=== PATIENT | female | born 1935 | race Caucasian/White ===

== ENCOUNTER 2017-08-01 10:58 | Emergency (ER) | payer OTHER ==
[~2017-08-01] VITALS: Ht 162.6 cm; Wt 77.1 kg
[~2017-08-01 10:58] MED LIST: ACID CONTROL20 MG PO; ACTONEL 35 MG35 M1 PO; AMLODIPINE BESY10 MG PO; ANALGESIC325 MG PO; BACTRIM DS TAB1 EACH PO; CALCITRIOL0.5 MCG PO; CIPROFLOXACIN500 M1 PO; DILANTIN 100 M100 MG PO; EFFEXOR XR37.5 MG PO; EFFEXOR37.5 MG PO; IMDUR 30 MG TAB30 M1 PO; LISINOPRIL10 MG PO; LISINOPRIL40 MG PO; NORCO 5-325 TA1 EACH PO; PHENYTEK200 MG PO; SIMVASTATIN10 MG PO; TOPROL XL50 MG PO; VICODIN 5-5001 EACH PO; VITAMIN D1000 UNI1 PO
[2017-08-01 12:20] LABS: ABSOLUTE NEUTROPHILS 9.9 thou/uL (1.4-8.2); BASOPHILS 0.5 % (0.0-2.0); EOSINOPHILS 0.4 % (0.0-3.0); HEMATOCRIT 43.2 % (37.0-47.0); HEMOGLOBIN 14.6 gm/dL (12.0-15.0); LYMPHOCYTES 2.8 % (24.0-44.0); MCHC 33.7 g/dL (28.0-37.0); MCV 94.9 fL (80.0-100.0); MONOCYTES 5.7 % (1.0-8.0); PLATELET COUNT 340 thou/uL (150-400); POLYS 90.6 % (36.0-66.0); RBC 4.55 mil/uL (4.20-5.00); RDW 13.3 % (10.5-14.5)
[2017-08-01 12:27] LABS: CALCIUM 9.9 mg/dL (8.5-10.1); CREATININE 0.9 mg/dL (0.6-1.0); POTASSIUM 4.2 mmol/L (3.5-5.1)
[2017-08-01 12:34] LABS: TOTAL BILIRUBIN 0.5 mg/dL (<0.1-1.0); TOTAL PROTEIN 7.8 g/dL (6.4-8.2)
[2017-08-01 13:31] LABS: URINE BILIRUBIN NEGATIVE (Negative); URINE BLOOD TRACE (Negative); URINE CLARITY CLEAR; URINE COLOR YELLOW; URINE GLUCOSE-RANDOM* NEGATIVE (Negative); URINE KETONES NEGATIVE (Negative); URINE LEUKOCYTES TRACE (Negative); URINE NITRITE NEGATIVE (Negative); URINE PROTEIN (DIPSTICK) NEGATIVE (Negative); URINE UROBILINOGEN 0.2 E.U./dl (0.2-1.0)
[2017-08-01] MEDS ORDERED: PHENERGAN 25 MG25 M1 PO (13:44)
== END 2017-08-01 14:19 | disposition home or self-care (01) ==
LOC: ER 10:58
PROVIDERS: Physician Assistant
DX: R11.2 Nausea with vomiting, unspecified (principal); I10 Essential (primary) hypertension; F41.9 Anxiety disorder, unspecified; F32.9 Major depressive disorder, single episode, unspecified; Z87.891 Personal history of nicotine dependence; Z90.49 Acquired absence of other specified parts of digestive tract

== ENCOUNTER 2018-07-06 09:35 | Inpatient (IN) | payer OTHER ==
[~2018-07-06] VITALS: Ht 162.6 cm; Wt 64.5 kg
--- NOTE | ~2018-07-06 | EKG ---
[place] [address] [address] [facility] 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 : 1935 Requested By: Laney Antonio Order Number: [id number] MD: Estuardo Vance Measurements Intervals [place] Rate: 89 P: 39 OK: 171 QRS: -20 QRSD: 90 T: 39 QT: 384 QTc: 468 Interpretive Statements Sinus rhythm left atrial enlargement Leftward axis Nonspecific ST-T wave changes Baseline wander in lead(s) V1 Compared to ECG 04/21/2011 11:49:00 Electronically Signed On 07-06-2018 12:12:22 RETAIL SERVICE TECHNICIAN by Estuardo Vance [email or web address] <ELECTRONICALLY SIGNED> By: Estuardo Vance MD 07/06/18 1212 1025 24 Estuardo Vance MD /EPI
[~2018-07-06 09:35] MED LIST changes: +PHENERGAN 25 MG25 M1 PO
[2018-07-06 09:37] VITALS: BP 138/73
[2018-07-06 09:57] LABS: ABSOLUTE NEUTROPHILS 6.8 thou/uL (1.4-8.2); BASOPHILS 1.3 % (0.0-2.0); EOSINOPHILS 0.5 % (0.0-3.0); HEMOGLOBIN 14.7 gm/dL (12.0-15.0); LYMPHOCYTES 10.5 % (24.0-44.0); MCH 32.4 pg (26.0-34.0); MCHC 34.3 g/dL (28.0-37.0); MCV 94.7 fL (80.0-100.0); PLATELET COUNT 347 thou/uL (150-400); POLYS 78.7 % (36.0-66.0); RBC 4.54 mil/uL (4.20-5.00); RDW 13.6 % (10.5-14.5); WBC 8.6 thou/uL (4.0-11.0)
[2018-07-06 09:58] LABS: URINE BLOOD TRACE (Negative); URINE CLARITY CLEAR; URINE COLOR YELLOW; URINE GLUCOSE-RANDOM* NEGATIVE (Negative); URINE KETONES TRACE (Negative); URINE LEUKOCYTES 1+ (Negative); URINE NITRITE NEGATIVE (Negative); URINE PROTEIN (DIPSTICK) 1+ (Negative); URINE SPECIFIC GRAVITY >= 1.030 (1.005-1.035); URINE UROBILINOGEN 0.2 E.U./dl (0.2-1.0)
[2018-07-06 10:02] LABS: ICTOTEST (BILI CONFIRMATORY) Negative (Negative); URINE BILIRUBIN NEGATIVE (Negative)
[2018-07-06 10:04] LABS: CALCIUM 9.7 mg/dL (8.5-10.1); POTASSIUM 3.9 mmol/L (3.5-5.1)
[2018-07-06 10:12] LABS: ALBUMIN 3.6 g/dL (3.4-5.0); TOTAL BILIRUBIN 0.4 mg/dL (<0.1-1.0); TOTAL PROTEIN 7.4 g/dL (6.4-8.2)
[2018-07-06 10:15] LABS: CASTS None Seen /LPF (None Seen); CRYSTALS None Seen /LPF (None Seen); SQUAMOUS 0-3 Few /LPF (0-3); URINE WBC 6-15 Few /HPF (0-5)
[2018-07-06 10:16] LABS: BACTERIA 1-9 Few /HPF (None Seen); MUCUS 0-3 Light strn/LPF (None Seen); URINE RBC 0-2 Rare /HPF (0-2)
[2018-07-06] MEDS ORDERED: ONDANSETRON HCL4 M2 PO (11:40)
[2018-07-06 12:21] LABS: BE(vivo) -4.9 mmol/L (-2 to +3); HCO3 19.7 mmol/L (22.0-26.0); PCO2 35.3 mmHg (35.0-45.0); PO2 72.5 mmHg (80.0-100.0); pH 7.365 (7.360-7.450); sO2 94.3 % (92.0-98.0)
[2018-07-06 12:49] VITALS: BP 138/65
[2018-07-06 13:01] VITALS: BP 133/78
[2018-07-06] MEDS ORDERED: DILANTIN100 MG PO (13:29)
[2018-07-06 14:00] VITALS: BP 133/69
[2018-07-06 16:48] VITALS: BP 129/60
[2018-07-06 19:02] VITALS: BP 135/69
[2018-07-07 06:27] LABS: HEMATOCRIT 38.4 % (37.0-47.0); MCH 32.9 pg (26.0-34.0); MCHC 33.8 g/dL (28.0-37.0); MCV 97.3 fL (80.0-100.0); PLATELET COUNT 282 thou/uL (150-400); RBC 3.95 mil/uL (4.20-5.00); RDW 13.8 % (10.5-14.5); WBC 5.7 thou/uL (4.0-11.0)
[2018-07-07 06:42] LABS: ALBUMIN 2.8 g/dL (3.4-5.0); CALCIUM 8.5 mg/dL (8.5-10.1); CREATININE 0.8 mg/dL (0.6-1.0); POTASSIUM 4.1 mmol/L (3.5-5.1); TOTAL BILIRUBIN 0.3 mg/dL (<0.1-1.0); TOTAL PROTEIN 5.8 g/dL (6.4-8.2)
[2018-07-07 07:05] LABS: ABSOLUTE NEUTROPHILS 3.2 thou/uL (1.4-8.2); ANISOCYTOSIS 1+
[2018-07-07 08:01] VITALS: BP 164/74
[2018-07-07 10:20] VITALS: BP 164/74
[2018-07-07 15:00] VITALS: BP 149/73
[2018-07-07 19:28] VITALS: BP 146/69
[2018-07-08 04:28] VITALS: BP 113/53
[2018-07-08 05:16] LABS: BE(vivo) 0.2 mmol/L (-2 to +3); HCO3 25.3 mmol/L (22.0-26.0); PCO2 42.7 mmHg (35.0-45.0); PO2 57.8 mmHg (80.0-100.0); pH 7.391 (7.360-7.450); sO2 89.8 % (92.0-98.0)
[2018-07-08 05:24] LABS: HEMATOCRIT 40.7 % (37.0-47.0); HEMOGLOBIN 13.8 gm/dL (12.0-15.0); MCH 32.8 pg (26.0-34.0); MCV 96.5 fL (80.0-100.0); RBC 4.22 mil/uL (4.20-5.00); RDW 13.6 % (10.5-14.5); WBC 6.7 thou/uL (4.0-11.0)
[2018-07-08 05:42] LABS: CALCIUM 8.7 mg/dL (8.5-10.1); CREATININE 0.8 mg/dL (0.6-1.0); MAGNESIUM 1.9 mg/dL (1.8-2.4); POTASSIUM 4.4 mmol/L (3.5-5.1); TOTAL BILIRUBIN 0.4 mg/dL (<0.1-1.0); TOTAL PROTEIN 6.1 g/dL (6.4-8.2)
[2018-07-08 07:23] VITALS: BP 159/68
[2018-07-08 13:42] VITALS: BP 137/70
[2018-07-08 19:05] VITALS: BP 157/69
[2018-07-09 03:25] VITALS: BP 82/64
[2018-07-09 12:39] VITALS: BP 149/96
== END 2018-07-09 13:15 | disposition home or self-care (01) | DRG 682 ==
LOC: ER 09:35 → EROBS 12:38 → 4W 12:38 → ENTRNSPT 07-09 12:54 → EDTRNSPTSTS 07-09 12:57 → 4W 07-09 13:15
PROVIDERS: Emergency Medicine; Internal Medicine; Nurse Practitioner Family
DX: N17.9 Acute kidney failure, unspecified (principal); J96.01 Acute respiratory failure with hypoxia; R18.8 Other ascites; I69.351 Hemiplegia and hemiparesis following cerebral infarction affecting right dominant side; J98.11 Atelectasis; K52.9 Noninfective gastroenteritis and colitis, unspecified; I10 Essential (primary) hypertension; E86.0 Dehydration; E78.5 Hyperlipidemia, unspecified; H91.90 Unspecified hearing loss, unspecified ear; K37 Unspecified appendicitis; H54.40 Blindness, one eye, unspecified eye; K21.9 Gastro-esophageal reflux disease without esophagitis; G40.409 Other generalized epilepsy and epileptic syndromes, not intractable, without status epilepticus; F32.9 Major depressive disorder, single episode, unspecified; F41.9 Anxiety disorder, unspecified; Z87.891 Personal history of nicotine dependence; I69.320 Aphasia following cerebral infarction; Z90.49 Acquired absence of other specified parts of digestive tract; Z79.82 Long term (current) use of aspirin; Z79.899 Other long term (current) drug therapy
CPT/HCPCS: 10045

== ENCOUNTER 2018-09-14 13:49 | Inpatient (IN) | payer OTHER ==
[~2018-09-14] VITALS: Ht 162.6 cm; Wt 63.3 kg
--- NOTE | ~2018-09-14 | P ---
[facility] [place] [address] PROCEDURE REPORT Name: EARNESTLETI Be Room #: 220-P [facility] IN M.R.#: [id number] Admission: 09/14/18 ������������������ Attend Phys: Feliz Benitez Discharge: ������������������ Date of : 34 Report #: [id number] THIS REPORT FOR: //name// CC: Eder Benitez DATE OF SERVICE: 09/18/2018 INPATIENT COLONOSCOPY: BRIEF HISTORY: The patient is an 82-year-old woman who presented with complaints of abdominal pain, low-grade fever and diarrhea as well as emesis. It is noted that she had similar problems in June of this past year and she was found to have fluid in the right colon and ileum suggestive of enteritis. There is also thickening of the distal limb and terminal ileum. She was treated conservatively, returned on this occasion with similar symptoms and unchanged appearance on CT. POSTOPERATIVE DIAGNOSES: Abnormal ileocecal valve and terminal ileum on CT with signs of obstruction. POSTOPERATIVE DIAGNOSES: 1. High-grade obstructing mass lesion proximal colon consistent with a malignant process. 2. Colon polyp. 3. Pandiverticulosis coli, moderate. 4. Internal hemorrhoids with a smaller mucosal prolapse. MEDICATIONS: Deep sedation with propofol for anesthesia. SPECIMEN: Biopsies of proximal colon. Obstructing mass lesion. PROCEDURE: Colonoscopy to cecum and terminal ileum with biopsy and Minal ink injection. FINDINGS: Prior to propofol sedation, procedure of colonoscopy was discussed with the patient as well as family members. She indicates she understands and desires to proceed. DESCRIPTION OF PROCEDURE: With the patient in left lateral decubitus position, digital examination was completed, which revealed no abnormalities. Subsequently, the Olympus video colonoscope was introduced into the rectum and advanced under direct vision to the proximal colon. This was done with minimal difficulty. We advanced the scope into what I believe was the proximal colon. [facility] [address] [place] [address] PROCEDURE REPORT Name: TINOCOLETI Be Room #: 220-P [facility] IN [facility].#: [id number] Admission: 09/14/18 ������������������ Attend Phys: Feliz Benitez Discharge: ������������������ Date of : 34 Report #: [id number] We encountered obstructing mass lesion. It had typical apple core appearance. The central lumen was patent, but was no more than 7-8 mm. It was much too small to allow forward advancement of the scope through the lesion. There appeared to be fully circumferential mass lesion. Multiple biopsies were obtained. Just distal to this area was a small 5 or 6 mm polyp. It was close to the mass lesion and was not removed. We also placed 2 Minal ink injections just distal to the colonic mass. At that point, scope was slowly withdrawn and careful circumferential views obtained. Overall, the prep was good. The mucosa was within normal limits, normal vascular pattern, normal light reflex except for the above-mentioned lesion. There were scattered diverticula throughout the colon. There was no endoscopic evidence of diverticulitis. No additional neoplastic or obstructing lesions were seen. The scope was withdrawn in the rectum and no abnormalities were seen. However, upon retroflexion, there was an area of thickened mucosa, most consistent with a small area of mucosal prolapse. It was not bleeding. The scope was withdrawn. The patient tolerated the procedure well. DISPOSITION: The patient with abnormal CT of the region of the ileocecal valve and terminal ileum. She was found to have obstructing colon mass. This is likely malignant. Exact location is not clear, but I do believe it is in the proximal colon. We will follow up on biopsies. The patient was previously seen by Dr. Elliott and we will ask him to follow up with this patient who will require surgical management of her obstructing colon mass. ��������������������������������������������� ���������������������������������������� By: ��������������������������������������������� 1340 0152 Dash Desai MD /nt
[~2018-09-14 13:49] MED LIST changes: -ANALGESIC325 MG PO; +DILANTIN100 MG PO; +ECPIRIN325 MG PO; +ONDANSETRON HCL4 M2 PO
[2018-09-14 13:50] VITALS: BP 118/54
[2018-09-14 14:38] LABS: URINE BLOOD NEGATIVE (Negative); URINE CLARITY SL CLOUDY; URINE COLOR YELLOW; URINE GLUCOSE-RANDOM* NEGATIVE (Negative); URINE KETONES TRACE (Negative); URINE PROTEIN (DIPSTICK) TRACE (Negative); URINE SPECIFIC GRAVITY >= 1.030 (1.005-1.035); URINE UROBILINOGEN 0.2 E.U./dl (0.2-1.0)
[2018-09-14 14:39] LABS: ICTOTEST (BILI CONFIRMATORY) Negative (Negative); URINE BILIRUBIN NEGATIVE (Negative); URINE LEUKOCYTES-REFLEX 1+ (Negative); URINE NITRITE-REFLEX POSITIVE (Negative)
[2018-09-14 14:39] LABS: ABSOLUTE NEUTROPHILS 7.9 thou/uL (1.4-8.2); BASOPHILS 1.1 % (0.0-2.0); EOSINOPHILS 0.5 % (0.0-3.0); HEMATOCRIT 39.7 % (37.0-47.0); HEMOGLOBIN 13.4 gm/dL (12.0-15.0); LYMPHOCYTES 10.8 % (24.0-44.0); MCH 32.1 pg (26.0-34.0); MCHC 33.9 g/dL (28.0-37.0); MCV 94.8 fL (80.0-100.0); PLATELET COUNT 365 thou/uL (150-400); POLYS 75.6 % (36.0-66.0); RBC 4.19 mil/uL (4.20-5.00); RDW 13.6 % (10.5-14.5); WBC 10.5 thou/uL (4.0-11.0)
[2018-09-14 14:45] LABS: ANION GAP 8 mmol/L (7-16); BUN 22 mg/dL (7-18); CALCIUM 9.3 mg/dL (8.5-10.1); CHLORIDE 103 mmol/L (98-107); CO2 27 mmol/L (21-32); GLUCOSE 133 mg/dL (74-106); POTASSIUM 4.1 mmol/L (3.5-5.1); SODIUM 138 mmol/L (136-145)
[2018-09-14 14:47] LABS: BACTERIA-REFLEX >30 Many /HPF (None Seen); CASTS None Seen /LPF (None Seen); CRYSTALS None Seen /LPF (None Seen); SQUAMOUS None Seen /LPF (0-3); URINE RBC None Seen /HPF (0-2)
[2018-09-14 15:04] LABS: ALBUMIN 3.4 g/dL (3.4-5.0); LIPASE 59 U/L (73-393); SGOT 16 U/L (15-37); SGPT 17 U/L (30-65); TOTAL BILIRUBIN 0.3 mg/dL (<0.1-1.0); TOTAL PROTEIN 6.9 g/dL (6.4-8.2); TROPONIN-I <0.06 ng/mL (<0.06)
[2018-09-14 18:15] LABS: TSH 2.08 uIU/mL (0.358-3.740)
[2018-09-14 19:52] VITALS: BP 118/74
[2018-09-14 20:18] VITALS: BP 127/63
--- NOTE | 2018-09-15 02:36 | EKG ---
[address] [place] [address] ELECTROCARDIOGRAM REPORT Name: LETI TINOCO Room #: 455-P ADM IN M.R.#: [id number] ������������������ Admission: 09/14/18 ������������������ Attend Phys: Feliz Benitez Discharge: ������������������ Date of : 34 Report #: [id number] ����������������������������������������������������������������� [id number] THIS REPORT FOR: //name// [facility] ED Test Date: 2018-09-14 Test Time: 13:59:43 Pat Name: LETI TINOCO Department: Room: [facility] Gender: F Procedure Manager: CHRISTIANO : 1935 Requested By: Shital Burrell Order Number: [id number] MD: Estuardo Vance Measurements Intervals [place] Rate: 79 P: 47 SC: 170 QRS: -21 QRSD: 89 T: 83 QT: 393 QTc: 451 Interpretive Statements Sinus rhythm Borderline left axis deviation Nonspecific ST-T wave changes Compared to ECG 07/06/2018 10:25:41 No significant changes Electronically Signed On 09-15-2018 2:36:34 COMMUNITY SPORTS COORDINATOR by Estuardo Vance [email or web address] ��������������������������������������������� <ELECTRONICALLY SIGNED> ���������������������������������������� By: Estuardo Vance MD ��������������������������������������������� 09/15/18 0236 1359 1359 Estuardo Vance MD /EPI
[2018-09-15 04:43] VITALS: BP 114/56
[2018-09-15 08:41] VITALS: BP 123/56
[2018-09-15 16:30] VITALS: BP 142/59
[2018-09-15 19:15] VITALS: BP 152/60
[2018-09-16 04:13] VITALS: BP 143/62
--- NOTE | 2018-09-16 06:18 | NUR ---
A/O, calm and pleasant; vss, afebrile; patient is not able to express needs clearly, was thirsty and hungry, the staff fed her ice cream, jello and ice water, tolerated very well; there is rash all over the back, will pass this on to the day nurse; patient voiced that she did not get sleep during the night, patient was in bed with eyes closed in bed this morning, will pass this on to the day nurse to see if the doctor will give some sleeping pill for the patient. no c/o nausea or vommitting, no diarrhea.
[2018-09-16 08:25] VITALS: BP 142/52
[2018-09-16 15:17] VITALS: BP 172/72
[2018-09-16 20:04] VITALS: BP 165/73
[2018-09-17 03:26] LABS: CALCIUM 8.6 mg/dL (8.5-10.1); CREATININE 0.6 mg/dL (0.6-1.0)
[2018-09-17 03:27] LABS: POTASSIUM 2.9 mmol/L (3.5-5.1)
[2018-09-17 03:56] LABS: HEMATOCRIT 36.8 % (37.0-47.0); HEMOGLOBIN 12.4 gm/dL (12.0-15.0); MCHC 33.7 g/dL (28.0-37.0); MCV 95.1 fL (80.0-100.0); RBC 3.87 mil/uL (4.20-5.00); RDW 13.3 % (10.5-14.5); WBC 6.2 thou/uL (4.0-11.0)
[2018-09-17 04:18] VITALS: BP 154/74
--- NOTE | 2018-09-17 06:41 | NUR ---
PATIENTS CARES WERE ASSUMED AT SHIFT CHANGE. PATIENT WAS ASSESSED AND MEDS WERE PASSED. PATIENT DID HAVE APPROX 400CC ZINA GREEN EMESIS. CALLED FOR IVP PEPCID AND ZOOFRAN. ZOFRAN WAS GIVEN AND NOT ANOTHER EPISODE. PATIENT WAS ABLE TO SLEEP AFTER SHE WAS CLEANED. PATIENT HAD TWO BATHS AND LINEN CHANGE HOURLY ROUNDS WERE DONE . PATIENT DID APPER TO BE SLEEPING WELL. THE BED IS IN A LOW AND LOCKED POSITION AND THE BED AALARM IS ON.
[2018-09-17 07:37] VITALS: BP 156/77
--- NOTE | 2018-09-17 14:16 | NUR ---
chart review, fani visited with pt at bedside, pt a & o self and family, difficulty with verbal communication 2nd to past h/o stroke. noted pt would say " yeah i do, or oh yes"/saira. fani visited with daughter sharda via phone call, intro to dcp, transition of care, hh and post acute " oh mom rehab from september 2007 and did not return home till december or january 2008, she was at [facility], then [facility], then [facility], and been to [facility]. my sister jong spends day with mom and friend zak who has mr and live in some home. mom uses walker and then when we go out she uses wheel chair. has scooter but she doesnt want to use it. has shower chair, to small space, so mom preferrs taking sponge wash and she stands holds on to sink and wash her hair. i stay night after work with mom and zak, then jong who is retired spends day time hours. we manage the medication. mom is able to feed her self. i think last time she was in there dec needed oxygen, but she does not have any home oxygen."/sharda. education on qualifications for home o2. will cont following as needed for dc needs.
--- NOTE | 2018-09-17 15:11 | NUR ---
Assumed care of patient at 0700. Patient resting in bed, had been incontinent of urine, placed female external catheter; worked well through the day. Patient able to tolerate liquids without difficulty, no vomitting noted. No stools for this shift. Seen by GI, plans for c-scope tomorrow, will undergo bowel prep tonight. Ok'd to transfer to senior suites, will go to room 220. Report called to SUHAS Esparza.
[2018-09-17 19:01] VITALS: BP 175/88
--- NOTE | 2018-09-18 04:13 | NUR ---
Pt alert and able to make needs with gestures,unable to talk d/t expressive aphasia from a previous stroke. Pt denies pain on assessment,VSS. Pt has been NPO since midnight for a colonoscopy today,able to tolerate bowel prep with no nausea or emesis reported. Pt having loose dark brown BMs at this time,does have some episodes of incontinence of B&B but otherwise using call light to call for help to get up and use BSC. Pt has right side hemiparesis with contracture noted on RUE,passive ROM done and pt tolerated well.Up with AX1, GB/RW. Pt is resting quietly at this time,eyes closed with no distress noted. Will continue to monitor pt.
[2018-09-18 07:30] VITALS: BP 165/77
--- NOTE | 2018-09-18 08:48 | NUR ---
PATIENT CARE WAS ASSUMED AT 0715.PATIENT IS ALERT AND ORIENTED X4.PATIENT HAS A HARD TIME EXPRESSING WHAT SHE WANTS TO SAY DUE TO AN OLD CVA.PT WAS PREP FOR COLONSCOPY,BOWEL MOVEMENTS ARE LIQUID BUT NOT CLEAR, AT THIS TIME.NO COMPLAINS OF PAIN AT THIS TIME.IV IS INTACT, AND HAS FLUIDS INFUSING.CALL LIGHT, PHONE, AND PERSONAL BELONGINGS ARE WITHIN REACH.BED ALARM AND CHAIR ALARM ARE IN PLACE,WITH OTHER FALL PRECAUTION.
--- NOTE | 2018-09-18 11:54 | NUR ---
PATIENT WAS TAKEN TO GI FOR PROCEDURE.FAMILY WAS CALLED AND WAS TOLD TO COME TO 2ND FLOOR TO SURGERY WAITING ROOM OR SENIOR SUITES.ENEMA WAS GIVEN BOWEL MOVEMENT IS STARTING TO CLEAR UP.COLOR IS CAPITAN GRANDE BAND GREEN, AND LIQUID.
[2018-09-18 18:55] VITALS: BP 161/100
[2018-09-18 21:12] VITALS: BP 160/85
[2018-09-19 05:56] LABS: CREATININE 0.8 mg/dL (0.6-1.0)
[2018-09-19 06:16] LABS: POTASSIUM 2.8 mmol/L (3.5-5.1)
--- NOTE | 2018-09-19 07:30 | NUR ---
Assumed pt care at 1900,pt alert,with expressive aphasia but able to make needs known with gestures. Denies pain on assessment. Had a colonoscopy yesterday,has had no complaints of N/V. Up with AX1,RW/GB to [facility].IVF infusing via left FA without any problems voiced.Resting quietly with eyes closed at this time with no distress noted.
--- NOTE | 2018-09-19 09:54 | NUR ---
SW reviewed chart and spoke with nursing. Pt was transferred to Senior Suites from . Pt had colonoscopy yesterday and on onstructing colon mass was found. Surgery consulted. Pt to be NPO for surgical intervention later today or tomorrow. SRIDHAR is following to assist as needed with discharge planning.
[2018-09-19 10:19] LABS: MAGNESIUM 1.4 mg/dL (1.8-2.4)
--- NOTE | 2018-09-19 13:06 | EKG ---
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 ODOM : 1935 Requested By: Ritesh Rivers Order Number: [id number] MD: Estuardo Vance Measurements Intervals [place] Rate: 73 P: 48 VT: 160 QRS: -2 QRSD: 102 T: 43 QT: 406 QTc: 448 Interpretive Statements Sinus rhythm Early transition Nonspecific ST-T wave changes Compared to ECG 09/14/2018 13:59:43 No significant changes Electronically Signed On 09-19-2018 13:06:29 WEB CONTENT SPECIALIST by Estuardo Vance [email or web address] ��������������������������������������������� <ELECTRONICALLY SIGNED> ���������������������������������������� By: Estuardo Vance MD ��������������������������������������������� 09/19/18 1306 1009 1009 Estuardo Vance MD /EPI
--- NOTE | 2018-09-19 18:03 | NUR ---
ASSUMED CARE OF PATIENT AT 0715, PATIENT ALERT AND ORIENTED X 4. PATIENT UP WITH ASSIST X [address]-WALKER [address] [facility] PATIENT DENIES PAIN THIS SHIFT. PATIENT HAD IV LEFT WRIST, PATIENT WENT TO HAVE CT SCAN OF CHEST DONE, PATIENT CAME BACK WITH SWOLLEN ARM, BRUISED REAALY BAD AFTER THEY PUT CONTRAST IN HER ARM, ICE APPLIED TO SITE AFTER RETURNING TO THE UNIT. NEW IV JUST STARTED IN LEFT UPPER ARM. PATIENT WILL BE NPO AFTER MIDNIGHT FOR SURGERY/DR COWART. EKG DONE THIS AM/NSR. PATIENT HAS EXPRESSIVE APHASIA, BUT CAN MAKE NEEDS KNOWN. POTASSIUM LEVEL THIS AM 2.8, STAT LAB DONE, NOW 4.1 AFTER POTASSIUM PROTOCOL DONE. PATIENT ALSO HAS D5 NS AT 125CC/HR. CHRONIC EDEMA TO RIGHT LEG. WILL CONTINUE TO MONITOR.
[2018-09-19 21:01] VITALS: BP 161/96
--- NOTE | 2018-09-20 05:38 | NUR ---
Pt alert with expressive aphisia but able to make needs known. Denies pain on assessment.Up with assist of 1,quad cane/GB.VSS.Pt has had two episodes of bladder incontinence otherwise calls approp to use BSC.Denies any nausea or vomiting.Pt has been NPO since midnight for a possible hemicolectomy.Dtr would like to be notified of the surgery time this am so they can come over to be with pt,will pass on to day shift RN.Pt chose to get OOB and sleep on the chair at 0245,resting at this time with no distress noted. Swelling persists on LFA r/t infiltration,ice pack applied on and off and elevated on a pillow,denies pain to the area. Will continue to monitor pt.
[2018-09-20 07:42] LABS: CALCIUM 9.2 mg/dL (8.5-10.1); CREATININE 0.6 mg/dL (0.6-1.0); POTASSIUM 3.3 mmol/L (3.5-5.1)
[2018-09-20 07:50] VITALS: BP 160/71
--- NOTE | 2018-09-20 10:11 | NUR ---
SRIDHAR reviewed chart and spoke with nursing. Pt scheduled to have surgery today due to right colon mass. Pt will have right hemicolectomy. Will have therapy evaluate pt for recommendation for discharge needs. SRIDHAR is following to assist as needed with discharge planning.
--- NOTE | 2018-09-20 13:02 | NUR ---
Pt SCHEDULED TO HAVE R HEMICOLECTOMY PER CHART. WILL NEED NEW PT ORDERS S/P SURGICAL INTERVENTION TO RESUME PT SERVICES.
--- NOTE | 2018-09-20 17:50 | NUR ---
ASSUMED CARE OF PATIENT AT 0715, PATIENT ALERT AND ORIENTED X 4. UP WITH ASSIST X 1 WITH QUAD CANE. PATIENT WAS NPO THIS AM FOR SURGERY, CALLED DR COWART, NO SURGERY TODAY, SURGERY IN AM O730, PATIENT WILL BE NPO AFTER MIDNIGHT. PATIENT STARTED CLEAR LIQUID DIET FOR LUNCH. PATIENT HAS BEEN UP MULTIPLE TIMES FOR BSC. PATIENT HAS LEFT UPPER ARM IV IN PLACE WITH D51/2NS AT 100CC/HR. PATIENT C/O PAIN WITH RIGHT LEG AND ABDOMEN AREA, PATIENT HAS MASS IN COLON AREA WILL HAVE SURGERY FOR REMOVAL OF MASS. PATIENT HAS HAD MORPHINE IV FOR PAIN, CALLED DR AMATO FOR PO PAIN MED, SHE STATED TO JUST USE A HEATING PAD TO ABDOMEN AREA NO ORDER RECEIVED FOR PO PAIN MEDS. SPOKE WITH JORGE/DAUGHTER TODAY FOR UPDATE SHE IS THE DPOA. PATIENT CONTINUES TO HAVE LARGE AREAS OF BRUISING TO LEFT ARM, SWELLING IMPROVED, CONTRACTURE TO RIGHT ARM. WILL CONTINUE TO MONITOR.
[2018-09-20 18:50] VITALS: BP 176/92
[2018-09-21 06:35] VITALS: BP 154/84
[2018-09-21 07:07] LABS: HEMATOCRIT 41.4 % (37.0-47.0); HEMOGLOBIN 13.9 gm/dL (12.0-15.0); MCH 31.9 pg (26.0-34.0); MCHC 33.5 g/dL (28.0-37.0); RBC 4.36 mil/uL (4.20-5.00); RDW 13.6 % (10.5-14.5)
[2018-09-21 07:18] LABS: CALCIUM 9.2 mg/dL (8.5-10.1); CREATININE 0.7 mg/dL (0.6-1.0); POTASSIUM 3.8 mmol/L (3.5-5.1)
--- NOTE | 2018-09-21 07:20 | NUR ---
PATIENT ALERT AND ORIENTED X4. DOES HAVE EXPRESSIVE APHAGIA BUT ABLE TO MAKE WANTS AND NEEDS KNOWN. UP TO BSC WITH ASSISTANCE OF 1. IV PATENT. BATH GIVEN FOR SURGERY. REMAINS NPO SINCE MN. SLEPT OFF AND ON DURING THIS SHIFT.
--- NOTE | 2018-09-21 10:43 | NUR ---
SW reviewed chart and spoke with nursing and attending physician. Pt is scheduled to have surgery (right hemicolectomy) today. Will have therapy eval pt after surgery to assist with recommendation for discharge disposition. SW is following to assist as needed with discharge planning.
[2018-09-21 11:42] VITALS: BP 169/92
--- NOTE | 2018-09-21 11:51 | NUR ---
PATIENT ARRIVED TO SENIOR SUITES FROM SURGERY.PATIENT IS ALERT, AND HAS SOME PAIN.FAMILY IS AT BEDSIDE.PATIENT WAS NOT GIVEN B/P MEDS ARE MEDICATION FOR SEIZURES BEFORE GOING TO OR.WILL GIVEN MEDICATIONS LATER TODAY.VITALS WERE TAKEN.
--- NOTE | 2018-09-21 12:03 | NUR ---
PT UNDERWENT SURGERY: HEMICOLECTOMY. DUE TO CHANGE IN STATUS, NEW ORDERS FOR O.T. ARE NEEDED WHEN/IF APPROPRIATE.
--- NOTE | 2018-09-21 16:07 | PATH ---
[facility] [address] [place] [address] PATHOLOGY RPT PROCEDURE Name: TINOCOLETI A Room #: 220-P ADM IN M.R.#: [id number] ������������������ Admission: 09/14/18 ������������������ Date of : 34 Discharge: Report #: [id number] Path Case #: [id number] [facility] Accession Number: [id number] . 01 Material submitted: . PROXIMAL COLON OBSTRUCTING MASS BIOPSY . 01 Clinical history: . Pre-OP DX: Abnormal CT Post-OP DX: Colon mass . 02 Diagnosis: Large intestine, proximal colon obstructing mass, endoscopic biopsy: - INVASIVE MODERATELY DIFFERENTIATED COLONIC ADENOCARCINOMA. (IUV:pit 09/19/2018) QTP/09/19/2018 . 02 Comment: Co-review: Dr. Jyoti Boykin. . Findings are relayed to Ms. Lani Torres, Nurse Practitioner for Dr. Dash Desai at 2:25 pm on 09/19/2018. (IUV:pit 09/19/2018) . 02 Electronically signed: . Sharlene Lee MD, Pathologist NPI- [id number] . 01 Gross description: . Received in formalin labeled "Leti Tinoco, proximal colon obstructing mass biopsy," are multiple segments of rosales soft tissue measuring 1.5 x 0.6 x 0.1 cm in aggregate dimensions. The specimen is filtered and entirely submitted in cassette A1. (TSD; 09/18/2018) TOB/TOB . 02 Pathologist provided ICD-10: C18.9 . 02 CPT . 242951 Specimen Comment: A courtesy copy of this report has been sent to Specimen Comment: [phone], , . Specimen Comment: Report sent to ,DR DUKES / DR GÓMEZ Specimen Comment: A duplicate report has been generated due to demographic updates. Performed at: [address] [place] [address] PATHOLOGY RPT PROCEDURE Name: LETI TINOCO Room #: 220-P [facility] IN M.R.#: [id number] ������������������ Admission: 09/14/18 ������������������ Date of : 33 Discharge: Report #: [id number] Path Case #: [id number] [address], [place], [place] [id number] MD Deo Mcfadden MD Phone: [phone] Performed at: [address], [place], [place] [id number] MD Sharlene Lee MD Phone: [phone]
--- NOTE | 2018-09-21 16:56 | NUR ---
PATIENT SEEN BY KHADAR ARAUZ, AND DETERMINED TO BE A CANDIDATE FOR ACUTE REHAB. IF PATIENT IS READY FOR DISCHARGE OVER THE WEEKEND (09/22 TO 09/23/18), PLEASE CONTACT JUSTEN HVAC DESIGNER TO INITIATE THE REHAB ADMISSION PROCESS - PHONE # [phone].
[2018-09-21 19:14] VITALS: BP 144/78
--- NOTE | 2018-09-22 03:48 | NUR ---
PATIENT ALERT AND ORIENTED X4. O2NC 3L. FERRIS TO D/D WITH CLEAR GRAYSON URINE. DRY COUGH. DRESSING D/I TO ABDOMINAL AREA. NO N/V NOTED. IVF INFUSING W/O COMPLICATION. RIGHT SIDE WEAKNESS DUE TO STROKE. SLOW TO SPEAK AND PROCESS, HOWEVER, APPROPRIATE WITH ANSWERS. BEDREST DURING THE NIGHT. WILL MONITOR.
[2018-09-22 07:06] LABS: HEMATOCRIT 34.6 % (37.0-47.0); MCH 32.6 pg (26.0-34.0); MCHC 34.5 g/dL (28.0-37.0); MCV 94.6 fL (80.0-100.0); RBC 3.65 mil/uL (4.20-5.00); WBC 9.9 thou/uL (4.0-11.0)
[2018-09-22 07:10] LABS: HEMOGLOBIN 11.9 gm/dL (12.0-15.0)
[2018-09-22 07:19] LABS: CALCIUM 8.1 mg/dL (8.5-10.1); CREATININE 0.9 mg/dL (0.6-1.0); POTASSIUM 3.6 mmol/L (3.5-5.1)
[2018-09-22 08:55] VITALS: BP 131/72
--- NOTE | 2018-09-22 18:11 | NUR ---
ASSUMED CARE OF PATIENT AT 0715, PATIENT ALERT AND ORIENTED X 4. PATIENT REFUSED TO GET UP TO CHAIR TODAY, WILL TRY TOMORROW. C/O PAIN WITH ABDOMEN AREA, PATIENT GIVEN MORPHINE 2 MG IV THIS AM, AND HAS RECEIVED HER SCHEDULED TRAMADOL AND TYLENOL EVERY 6 HOURS. PATIENT WAS ON CLEAR LIQUIDS THIS AM AND AT LUNCH. DIET CHANGED TO FULL LIQUIDS AT DINNER. NO C/O NAUSEA THIS SHIFT. PATIENT HAS LEFT FOREARM IV WITH D51/2 NS AT 100CC/HR. PATIENT RECEIVED 2 IV ANTIBIOTICS THIS SHIFT. PATIENT HAS FERRIS CATHETER IN PLACE WITH TEA COLORED URINE. UPDATE GIVEN TO DAUGHTER/JORGE. O2 AT 3 LITERS/NC AT START OF SHIFT, DECREASED DOWN TO 1 LITER/NC, NO S/S OF RESP DISTRESS, SATS ABOVE 90% PATIENT HAS PREVENA DRESSING TO ABDOMEN AREA, C/D/I. WILL CONTINUE TO MONITOR.
[2018-09-22 19:40] VITALS: BP 143/82
--- NOTE | 2018-09-23 04:00 | NUR ---
PATIENT ALERT AND ORIENTED X4. 02NC 1L, NO SOA NOTED. IVF INFUSING W/O COMPLICATION. FERRIS TO D/D WITH LIGHT GRAYSON URINE. TOLERATING FULL LIQUID DIET. DRESSING/VAC TO ABDOMEN DRY, INTACT AND OPERATING W/O COMPLICATION. RIGHT SIDE WEAKNESS. PATIENT RESTING QUIETLY. RECEIVING SCHEDULED PAIN MEDICATION. WILL MONITOR.
[2018-09-23 07:02] LABS: HEMATOCRIT 35.3 % (37.0-47.0); HEMOGLOBIN 11.9 gm/dL (12.0-15.0); MCH 31.8 pg (26.0-34.0); MCHC 33.7 g/dL (28.0-37.0); MCV 94.3 fL (80.0-100.0); RBC 3.74 mil/uL (4.20-5.00); RDW 13.9 % (10.5-14.5); WBC 9.9 thou/uL (4.0-11.0)
[2018-09-23 07:10] LABS: CALCIUM 9.3 mg/dL (8.5-10.1); CREATININE 0.8 mg/dL (0.6-1.0); POTASSIUM 4.1 mmol/L (3.5-5.1)
--- NOTE | 2018-09-23 07:40 | HC ---
[facility] [place] [address] CONSULTATION Name: LETI TINOCO Room #: 220-P ADM IN M.R.#: [id number] Admission: 09/14/18 ������������������ Attend Phys: Feliz Benitez Discharge: ������������������ Date of : 34 Report #: [id number] THIS REPORT FOR: //name// CC: Eder Desai MD REASON FOR CONSULTATION: Adenocarcinoma of the proximal colon. HISTORY OF PRESENT ILLNESS: The patient is an 82-year-old female from the [place] area who had been in the ER for abdominal discomfort and nausea and vomiting. CAT scan raised a question of colonic thickening. The patient underwent a colonoscopy with Dr. Dash Desai on I believe 09/18/2018 at which time an abnormal ileocecal valve and terminal ileum mass was seen. There is a high grade obstructive mass consistent with a malignant process. There was also colonic polyp and pandiverticulosis colitis thought to be moderate and internal hemorrhoids with a small mucosal prolapse. The biopsy came back showing invasive moderately differentiated adenocarcinoma. The patient underwent a hemicolectomy yesterday with Dr. Elliott. Per his note, there does not appear to be any gross evidence of disease. The patient has expressive aphasia and can nod her head I believe appropriately to simple questions. She is having some discomfort, but her face does not look like extreme discomfort. and talking with nurse it sound like she has been using pain medications. She is not running any fever. She does not hurt elsewhere. She feels fatigued, but I do not believe by her description feels short of breath. PAST MEDICAL HISTORY: Notable for the recent diagnosis of adenocarcinoma of the proximal colon, status post right hemicolectomy. She also has a history of a CVA with right weakness and also expressive aphasia, also has a history of a seizure disorder, also I believe she has a history of hyperlipidemia and also I believe hypertension. FAMILY HISTORY: I believe from her report, she is and has seven children. I do not see any report about whether she worked or what type of work she did. I believe she lives with family. We will have to clarify that. CURRENT MEDICATIONS: In the hospital include cyanocobalamin 500 mcg daily, ceftriaxone 1 gram daily, phenytoin 100 mg daily, metoprolol 50 mg daily, MiraLax 17 grams daily, famotidine 10 mg b.i.d. IV, metronidazole IV, tramadol p.r.n., Tylenol p.r.n., hydralazine p.r.n. DIAGNOSTIC DATA: Radiologic studies included a CT chest that did not see [address] [address] CONSULTATION Name: TINOCOLETI Be Room #: 220-P [facility] IN M.R.#: [id number] Admission: 09/14/18 ������������������ Attend Phys: Feliz Benitez Discharge: ������������������ Date of : 34 Report #: [id number] definite evidence of metastatic disease. There was some chronic stable emphysema. CT abdomen done before surgery found distal small-bowel obstruction at the ileocecal junction where there was circumferential mural thickening. There had been fluid ascites seen earlier with a decrease on this exam. LABORATORY DATA: Lab exam is notable for a preop CEA of 16, BUN and creatinine in normal range. Liver functions normal with alkaline phosphatase slightly up at 119. White blood count 9.9, hemoglobin 11.9, MCV 94.6, platelets 259. Differential nonacute. CEA as I mentioned was 16.6. TSH recently 2.08. ASSESSMENT AND PLAN: 1. Adenocarcinoma of the proximal colon, status post hemicolectomy in 09/21/2018. We will need to repeat CEA postoperatively when she is recovered. We will await final path report. Doubt that we will suggest adjuvant chemotherapy given the patient's performance status. 2. General debility. Rehab services are seeing the patient. 3. History of cerebrovascular accident and right hemiparesis and expressive aphasia. Defer to rehab services. The patient's family not available to discuss the case. 4. Seizure disorder. The patient is on phenytoin. 5. Hyperlipidemia. Had previously been on statin. 6. Possible hypertension. He is currently on metoprolol, had been on amlodipine. We will follow. ��������������������������������������������� <ELECTRONICALLY SIGNED> ���������������������������������������� By: Hakeem Appiah MD ��������������������������������������������� 09/23/18 0740 [id number] Hakeem Appiah MD /nt
[2018-09-23 08:05] VITALS: BP 167/86
--- NOTE | 2018-09-23 15:09 | NUR ---
ASSUMED CARE OF PATIENT AT 0715, PATIENT ALERT AND ORIENTED X 4, UP WITH ASSIST X 1 WITH GAIT BELT AND QUAD CANE. PATIENT VERY WEAK TODAY, NEEDING MODERATE ASSIST X 1, UP TO RECLINER THIS AM. PATIENT C/O PAIN WITH ABDOMEN AREA, PATIENT HAS SCHEDULED TYLENOL AND TRAMADOL EVERY 6 HOURS AMD STILL HAS MORPHINE 2 MG IV GIVEN X 2 THIS SHIFT. PATIENT HAS RIGHT FOREARM IV WITH D51/2 NS AT 100CC/HR. DR GEORGE HERE THIS AM TO SEE PATIENT, ANTIBIOTICS HAVE BEEN CHANGED TO PO, PATIENT ON FUL LIQUID DIET, C/O NAUSEA THIS AM, ZOFRAN 4MG IV GIVEN, AND WAS EFFECTIVE. PATIENT HAS O2 AT 2 LITERS/NC SATS 92%, PATIENT HAS NON-PRODUCTIVE COUGH. DAUGHTER/ELIE HERE THIS AFTERNOON. WILL CONTINUE TO MONITOR.
[2018-09-23 19:23] VITALS: BP 169/85
[2018-09-23 21:26] VITALS: BP 151/90
--- NOTE | 2018-09-24 05:04 | NUR ---
PATIENT ALERT AND ORIENTED X4. SLOW TO SPEAK DUE TO STROKE. 02NC 3L. NO SOA NOTED. FERRIS TO D/D WITH CLEAR YELLOW URINE. DRESSING TO ABDOMEN DRY AND INTACT. PLEASANT AND COOPERATIVE WITH CARE. IVF INFUSING W/O COMPLICATION. NO C/O N/V. WILL MONITOR.
[2018-09-24 07:53] VITALS: BP 165/78
--- NOTE | 2018-09-24 18:21 | NUR ---
ASSUMED CARE OF PATIENT AT 0715, PATIENT ALERT AND ORIENTED X 4. PATIENT UP WITH ASSIST X 1 WITH QUAD CANE. PATIENT CONTINUES TO C/O PAIN WITH ABODMEN AREA, PREVENA DRESSING C/D/I. PATIENT RECEIVED TYLENOL AND MORPHINE IV THIS SHIFT. MORPHINE HAS BEEN DISCONTINUED AND TRAMADOL DISCONTINUED. PATIENT VOMITTED X 1, THIS RN NOTIFIED DR COWART, RECEIVED ORDER TO MAKE PATIENT NPO UNTIL DINNER AND IF SHE VOMITS AGAIN MAY HAVE TO PUT NG TUBE IN PLACE. PATIENT RESTED THE AFTERNOON, HAD SMALL AMT OF DINNER, NO C/O NAUSEA THIS THIS TIME. IV FLUIDS DISCONTINUED. PATIENT STLL HAS RIGHT FOREARM IV IN PLACE, PATIENT RECEIVE ZOFRAN 4 MG X 1 THIS SHIFT. WILL CONTINUE TO MONITOR. PT/OT WORKED WITH PATIENT TODAY. PATIENT STILL NOT PASSING GAS OR BROADLOOM WEAVER BM TIS SHIFT. PATIENT AFTER MEDICALLY STABLE WILL GO [facility].
[2018-09-24 19:17] VITALS: BP 151/80
--- NOTE | 2018-09-25 05:27 | NUR ---
Pt alert and able to make needs known,has expressive aphasia with right side weakness and contracture to right hand. Pt medicated with Tramadol at HS with relief reported but declined taking her scheduled midnight Tylenol stating she does not need it then.Toure patent draining light yellow urine.Prevena dsg C/D/I to midline incision.No c/o N/V at night. Encouraged to eat something,had a little bit of Jello and apple juice before taking HS meds. IV reinserted on left hand d/t infiltration on RFA.IV fluids infusing without problems. Pt resting with no distress noted,O2 on @ 2L/NC for comfort. SCDs in place. Will continue to monitor pt.
[2018-09-25 07:39] VITALS: BP 152/93
[2018-09-25] MEDS ORDERED: FLORANEX GRANU1 EACH PO (08:01)
[2018-09-25 09:11] LABS: HEMATOCRIT 42.1 % (37.0-47.0); MCH 32.3 pg (26.0-34.0); MCHC 33.4 g/dL (28.0-37.0); MCV 96.8 fL (80.0-100.0); RBC 4.35 mil/uL (4.20-5.00); RDW 13.6 % (10.5-14.5); WBC 10.6 thou/uL (4.0-11.0)
[2018-09-25 09:14] LABS: HEMOGLOBIN 14.1 gm/dL (12.0-15.0)
[2018-09-25 09:17] LABS: CALCIUM 9.7 mg/dL (8.5-10.1); CREATININE 0.7 mg/dL (0.6-1.0); MAGNESIUM 1.9 mg/dL (1.8-2.4); POTASSIUM 4.6 mmol/L (3.5-5.1)
[2018-09-25 09:23] VITALS: BP 152/93
--- NOTE | 2018-09-25 11:07 | PATH ---
[facility] [address] [address] PATHOLOGY RPT PROCEDURE Name: LETI OTOOLE Room #: 220-P ADM IN M.R.#: [id number] ������������������ Admission: 09/14/18 ������������������ Date of : 34 Discharge: Report #: [id number] Path Case #: [id number] [facility] Accession Number: [id number] . 01 Material submitted: . RIGHT HEMICOLECTOMY AND OMENTUM . 01 Clinical history: . Colon obstruction, invasive moderately differentiated colonic Adenocarcinoma per path report preoperatively . 02 Diagnosis: Terminal ileum, appendix and right colon, right hemicolectomy: - INVASIVE MODERATELY DIFFERENTIATED COLONIC ADENOCARCINOMA MEASURING 3.2 CM IN GREATEST DIMENSION, INVADING INTO PERICOLORECTAL TISSUE. - Margins of resection free of malignancy; closest mesenteric margin is 2 cm away. - Appendix showing reactive changes without any malignancy. - Terminal ileum measuring 6.9 cm without any malignancy. - Nineteen reactive lymph nodes without any malignancy (0/19). Omentum, omentectomy: - 18 cm of omentum with congestion and fat necrosis as well as reactive changes. - Negative for malignancy. (IUV:felix; 09/24/2018) . . Surgical Pathology Cancer Case Summary . Protocol posting date: December 2016 . COLON AND RECTUM: Resection, Including Transanal Disk Excision of Rectal Neoplasms . Procedure ___ Right hemicolectomy . Tumor Site ___ Cecum . Tumor Size Greatest dimension (centimeters): 3.2 cm . Macroscopic Tumor Perforation . ___ Not identified . Histologic Type [facility] [address] [place] [address] PATHOLOGY RPT PROCEDURE Name: LETI OTOOLE Room #: 220-P [facility]#: [id number] ������������������ Admission: 09/14/18 ������������������ Date of : 34 Discharge: Report #: [id number] Path Case #: [id number] ___ Adenocarcinoma . Histologic Grade ___ G2: Moderately differentiated . Tumor Extension ___ Tumor invades through the muscularis propria into pericolorectal tissue . Margins ___ All margins are uninvolved by invasive carcinoma, high-grade dysplasia, intramucosal adenocarcinoma, and adenoma . Margins examined: . Distance of invasive carcinoma from closest margin: 2 cm . Specify closest margin: mesenteric margin . . Treatment Effect . ___ No known presurgical therapy . Lymphovascular Invasion ___ Not identified . Perineural Invasion ___ Not identified . . Tumor Deposits . ___ Not identified . . Regional Lymph Nodes Number of Lymph Nodes Involved: 0 . Number of Lymph Nodes Examined: 19 . Pathologic Stage Classification (pTNM, AJCC 8th Edition) Note: Reporting of pT, pN, and (when applicable) pM categories is based on information available to the pathologist at the time the report is issued. . . Primary Tumor (pT) ___ pT3: Tumor invades through the muscularis propria into [facility] [address] [place] [address] PATHOLOGY RPT PROCEDURE Name: LETI OTOOLE Room #: 220-P ADM IN .R.#: [id number] ������������������ Admission: 09/14/18 ������������������ Date of : 34 Discharge: Report #: [id number] Path Case #: [id number] pericolorectal tissues . Regional Lymph Nodes (pN) ___ pN0: No regional lymph node metastasis . Distant Metastasis (pM) (required only if confirmed pathologically in this case) ___ pMx: Not known . (IUV: 09/24/2018) QTP/09/24/2018 . 02 Electronically signed: . Sharlene Lee MD, Pathologist NPI- [id number] . 01 Gross description: . The specimen is received in formalin, labeled "Leti Otoole, right hemicolectomy and omentum" and consists of a right hemicolectomy specimen consisting of terminal ileum (6.9 cm in length and 3.5 cm in diameter), appendix (5.3 cm in length and 0.5 cm in diameter), large intestine (24.5 cm in length and ranging from 2.8-4.8 cm in diameter), and pericolic fat measuring up to 7.8 cm. There is black tattoo ink distal the cecum (10.0 cm from proximal margin). The serosa is pink-edmondson with thin adhesions and a puckered area proximal the black tattoo ink which is inked blue. The mesenteric margin is inked green. Also received is a segment of omentum measuring 18.8 x 9.0 x 2.5 cm. The specimen is opened and placed in formalin for overnight fixation. (SDY; 09/21/2018) . After overnight fixation a near circumferential, rosales-pink, ulcerated, and fungating mass is identified in the cecum which involves the ileocecal valve (3.2 x 3.0 cm) which extends 7.0 cm from the proximal margin, greater than 19 cm from the distal margin, and greater than 2 cm from the nearest mesenteric margin. Sectioning the mass reveals obliteration of the muscular wall with a maximum extension into the pericolic tissue of 1.0 cm. The mass abuts the blue inked serosa. The appendix serosa is rosales and smooth with focal adhesions and sectioning reveals a pinpoint lumen with no discrete fecaliths or mucosal lesions. The omentum reveals no nodules or mass lesions. The pericolic fat reveals numerous lymph nodes candidates ranging from 0.2 cm to 1.4 cm. Tool Setter sections are submitted as follows: . A1: Proximal margin A2: Distal margin A3: Mass abutting blue ink serosa A4: Mass deepest invasion [address] [address] PATHOLOGY RPT PROCEDURE Name: OTOOLELETI A Room #: 220-P ADM IN M.R.#: [id number] ������������������ Admission: 09/14/18 ������������������ Date of : 34 Discharge: Report #: [id number] Path Case #: [id number] A5-A6: Additional mass A7: Mesenteric margin, perpendicular A8: Appendix A9: Omentum A10: One trisected lymph node candidate A11: One trisected lymph node candidate A12: One trisected lymph node candidate A13: 2 bisected lymph node candidates, one inked black A14: One serially sectioned lymph node candidate A15: 2 bisected lymph node candidates, one inked black A16: Multiple intact candidates A17: 2 bisected candidates, one inked black (SDY; 09/22/2018) SYU/SYU . 02 Pathologist provided ICD-10: C18.0, K65.4 . 02 CPT . 897257, [id number] Specimen Comment: A courtesy copy of this report has been sent to Specimen Comment: [phone], . Specimen Comment: Report sent to , DR GÓMEZ / DR DUKES Specimen Comment: A duplicate report has been generated due to demographic updates. Performed at: [address] [facility], [place] [id number] MD Deo Mcfadden MD Phone: [phone] Performed at: [address] [facility] [id number] MD Sharelne Lee MD Phone: [phone]
--- NOTE | 2018-09-25 14:19 | NUR ---
DISCHARGE NOTE: SRIDHAR reviewed chart and spoke with nursing and attending physician. Pt is medically stable for discharge to 5 today. Discharge orders written. SW notified [facility] teacher who confirms they are able to accept pt today. Rehab CM to follow and assist as needed with discharge planning.
== END 2018-09-25 11:55 | DRG 329 ==
LOC: ER 13:49 → EROBS 17:36 → SICU 17:36 → 4W 17:36 → SICU 09-17 16:11 → ENTRNSPT 09-24 16:57 → CMPTRNSPT 09-25 08:09 → ENTRNSPT 09-25 11:25 → EDTRNSPTSTS 09-25 11:30 → SICU 09-25 11:55
PROVIDERS: Emergency Medicine; Hospitalist; Internal Medicine; Surgery; ADMIT Hospitalist
PROC: 0DBH8ZX Excision of Cecum, Via Natural or Artificial Opening Endoscopic, Diagnostic (ICD-10-PCS; principal; 2018-09-18)
PROC: 0DTF0ZZ Resection of Right Large Intestine, Open Approach (ICD-10-PCS; principal; 2018-09-18)
PROC: 0DN80ZZ Release Small Intestine, Open Approach (ICD-10-PCS; principal; 2018-09-18)
PROC: 0DBL8ZX Excision of Transverse Colon, Via Natural or Artificial Opening Endoscopic, Diagnostic (ICD-10-PCS; principal; 2018-09-18)
PROC: 0DBK8ZX Excision of Ascending Colon, Via Natural or Artificial Opening Endoscopic, Diagnostic (ICD-10-PCS; principal; 2018-09-18)
DX: C18.9 Malignant neoplasm of colon, unspecified (principal); E43 Unspecified severe protein-calorie malnutrition; N39.0 Urinary tract infection, site not specified; I69.351 Hemiplegia and hemiparesis following cerebral infarction affecting right dominant side; K56.50 Intestinal adhesions [bands], unspecified as to partial versus complete obstruction; K56.7 Ileus, unspecified; I10 Essential (primary) hypertension; E78.5 Hyperlipidemia, unspecified; E53.8 Deficiency of other specified B group vitamins; E55.9 Vitamin D deficiency, unspecified; R41.81 Age-related cognitive decline; F41.1 Generalized anxiety disorder; B96.20 Unspecified Escherichia coli [E. coli] as the cause of diseases classified elsewhere; E87.6 Hypokalemia; G40.409 Other generalized epilepsy and epileptic syndromes, not intractable, without status epilepticus; K57.30 Diverticulosis of large intestine without perforation or abscess without bleeding; K63.5 Polyp of colon; K64.8 Other hemorrhoids; F32.9 Major depressive disorder, single episode, unspecified; Z68.23 Body mass index [BMI] 23.0-23.9, adult; Z90.49 Acquired absence of other specified parts of digestive tract; I69.320 Aphasia following cerebral infarction; Z87.891 Personal history of nicotine dependence; Z79.82 Long term (current) use of aspirin; Z79.899 Other long term (current) drug therapy
CPT/HCPCS: 10040; 15002; 50010; 50093; 50101; 50386; 50455; 50953; 51412; 51435; 51708; 51712; 56527; 56530; 57092; 62110; 62900; 70005

== ENCOUNTER 2018-09-25 09:50 | Inpatient (IN) | payer OTHER ==
[~2018-09-25] VITALS: Ht 157.5 cm; Wt 65.8 kg
--- NOTE | ~2018-09-25 | PLAN ---
[facility] [place] [address] REHAB UNIT PLAN OF CARE Name: TINOCOLETI Be Room #: 506-1 ADM IN M.R.#: [id number] Admission: 09/25/18 ������������������ Attend Phys: Karthik Lau MD Discharge: ������������������ Date of : 34 Report #: [id number] THIS REPORT FOR: //name// CC: Karthik Sparks DATE OF SERVICE: 09/28/2018 PROGRESS NOTE/OVERALL PLAN OF CARE: SUBJECTIVE: The patient is seen back today in followup. She is in no distress. She is working in therapies with transfers, min assist. Gait standby assist and 75 feet, pyramid cane. Lower body dressing has been mod assist. She has the premorbid significant expressive aphasia. She is status post hemicolectomy. ASSESSMENT: 1. Stage 2 colon adenocarcinoma, status post exploratory laparotomy with lysis of adhesions and hemicolectomy 09/21/2018. 2. Medical complexity with generalized debilitation. 3. Late effect cerebrovascular accident. 4. History of cerebrovascular accident with significant expressive aphasia and right upper extremity greater than right lower extremity residual spastic hemiparesis. 5. Electrolyte abnormalities. 6. Urinary tract infection. 7. Hypertension. 8. Hyperlipidemia. 9. Generalized anxiety disorder. 10. Generalized seizure disorder. PLAN: The overall plan of care is based on the preadmission screen, post-admission physician evaluation and information garnered from therapy assessments. 1. Estimated length of stay is probably 7-14 days pending progress. 2. Medical prognosis is reasonably good. 3. Anticipated interventions includes the interdisciplinary acute inpatient rehabilitation program with goal of maximizing the patient's functional independence, so she can hopefully return back to her prior living situation. 4. Anticipated functional outcomes would be for the patient to become modified independent with transfers, mobility, ADLs. She can hopefully return back to her prior living situation. 5. Discharge destination is back home with her family. She has a couple of daughters that alternate caring for her. 6. Expected therapy by discipline includes PT, OT 1 to 1-1/2 hours per day each [address] [address] REHAB UNIT PLAN OF CARE Name: LETI TINOCO Room #: 506-1 [facility] IN [facility].#: [id number] Admission: 09/25/18 ������������������ Attend Phys: Karthik Lau MD Discharge: ������������������ Date of : 34 Report #: [id number] five days a week throughout the duration of the acute inpatient rehabilitation stay. ��������������������������������������������� ���������������������������������������� By: ��������������������������������������������� [id number] Karthik Lau MD /nt
--- NOTE | ~2018-09-25 | H ---
[facility] [place] [address] HISTORY AND PHYSICAL Name: TINOCOLETI Be Room #: 506-1 ADM IN M.R.#: [id number] Admission: 09/25/18 ������������������ Attend Phys: Karthik Lau MD Discharge: ������������������ Date of : 34 Report #: [id number] THIS REPORT FOR: //name// CC: Karthik Sparks DATE OF SERVICE: 09/25/2018 HISTORY AND PHYSICAL AND POST-ADMISSION PHYSICIAN EVALUATION HISTORY OF PRESENT ILLNESS: The patient is an 82-year-old white female originally presented to [facility] on 09/14/2018 with abdominal pain, nausea, diarrhea, found to have an obstructing colon mass. Colonoscopy with biopsy found adenocarcinoma. She underwent hemicolectomy on 09/21/2018. She was placed on a Prevena VAC over the abdominal incision. She has some electrolyte abnormalities with her diarrhea that were replaced. She has a premorbid history of CVA with significant expressive aphasia and right-sided weakness, upper extremity greater than lower extremity. She had been able to feed herself and transfer herself and was using a jacqui walker prior to admission. She had a significant functional decline from her premorbid status with late effect cerebrovascular accident with right hemiparesis and expressive aphasia with worsening functional ability post-acute hospitalization for her multiple medical problems as noted above. She has been admitted now for acute in-hospital inpatient rehabilitation. PAST MEDICAL HISTORY: Includes hypertension, CVA, seizure disorder, expressive aphasia, right upper extremity flexion contracture and right hemiparesis. PAST SURGICAL HISTORY: Cholecystectomy. HABITS: Smoking, quit greater than a year ago. No history of alcohol abuse. No history of recreational drug abuse. MEDICATIONS: Please see the full medication listing. This includes vitamins, herbals and supplements. ALLERGIES: No known drug allergies. SOCIAL HISTORY: Lives with family. She lives at home with her 2 daughters alternating providing 24-hour care for her. She did require max assist for showering, max assist for dressing and min assist for ambulation with her walker. She was able to feed herself. REVIEW OF SYSTEMS: Somewhat limited with her expressive aphasia, but there is no fever or chills. No cough, shortness of breath, no chest pain, abdominal pain. No problems with urination, no obvious numbness, tingling or neurologic [address] [address] HISTORY AND PHYSICAL Name: LETI TINOCO Room #: 506-1 [facility].#: [id number] Admission: 09/25/18 ������������������ Attend Phys: Karthik Lau MD Discharge: ������������������ Date of : 34 Report #: [id number] changes. No focal extremity pain complaints. PHYSICAL EXAMINATION: GENERAL: The patient is an 82-year-old white female in no obvious distress. The patient is alert. She is pleasant. VITAL SIGNS: Last recorded temperature 98.3, pulse 102, respirations 20, blood pressure 156/90. NEUROLOGIC: She has obvious severe expressive aphasia. There is a definite delay in her responses. She has a depressed right nasolabial fold. EOMs appeared to be full. She was able to hold up two fingers with her left hand if I showed her what I desire to do, but had difficulty doing it unless I demonstrate it. She is able to say some basic automatic phrases, but otherwise have significant difficulty with word finding. HEENT: Otherwise appeared benign. CHEST: Sounded clear to auscultation. CARDIOVASCULAR: Regular rate and rhythm. ABDOMEN: She does have the wound VAC in place. This is over the abdominal incision. Abdomen is soft. Bowel sounds are positive. GENITOURINARY AND RECTAL: Deferred. EXTREMITIES: She has functional range of motion of the left upper and left lower extremity without focal weakness. Right upper extremity, she has chronic contracture with flexion of that right arm. There is some increased tone with spasticity with DTRs 2+ and had to have a positive Flynn's. She has some very limited movement of that right upper extremity, probably a grade 2+ unable to relief driller. Right lower extremity strength is probably a grade 3+ to 4-. There is some increased tone of the patellar tendon and toe appears upgoing. She has been min assist with basic transfers. She has done some short distance ambulation with a pyramid cane. ASSESSMENT: An 82-year-old white female with the following problem list: 1. Adenocarcinoma, status post hemicolectomy 09/21/2018. 2. Late effect cerebrovascular accident. 3. History of cerebrovascular accident with significant expressive aphasia and right upper extremity greater than right lower extremity spastic hemiparesis. 4. Electrolyte abnormalities. 5. Urinary tract infection. 6. Hypertension. 7. Hyperlipidemia. 8. Generalized anxiety disorder. 9. Generalized seizure disorder. PLAN: The patient has been admitted for acute in-hospital inpatient rehabilitation. From a postadmission physician evaluation perspective, there are no relevant changes since the preadmission screening. Please see the above review of prior and current medical and functional conditions and comorbidities. Please see the patient's previous and current functional status. As far as [address] [address] HISTORY AND PHYSICAL Name: LETI TINOCO Room #: 506-1 ADM IN M.R.#: [id number] Admission: 09/25/18 ������������������ Attend Phys: Karthik Lau MD Discharge: ������������������ Date of : 34 Report #: [id number] risk of complications, the patient has multiple medical comorbidities as noted above. Initial plan of care involves the interdisciplinary acute inpatient rehabilitation program with goal of maximizing the patient's functional independence, so that she can hopefully return back to her prior living situation. Measurable functional goals would be for the patient to become modified independent with transfers, mobility, ADLs and to achieve her prior functional level, so she can return back to the home setting. Prognosis is reasonably good with estimated length of stay probably at least 7-14 days pending progress. Potential barriers would include her multiple medical comorbidities and decreased functional status. The patient meets diagnostic criteria for an acute in-hospital inpatient rehabilitation stay. She meets the medical necessity criteria. We will have the forestry consultant physicians continue to follow up. She does have the tolerance for therapies and has appropriate discharge goals back to the home setting. ��������������������������������������������� ���������������������������������������� By: ��������������������������������������������� [id number] Karthik Lau MD /[facility]
--- NOTE | ~2018-09-25 | HC ---
[facility] [place] [address] CONSULTATION Name: LETI TINOCO Room #: 506-1 ADM IN M.R.#: [id number] Admission: 09/25/18 ������������������ Attend Phys: Karthik Lau MD Discharge: ������������������ Date of : 34 Report #: [id number] THIS REPORT FOR: //name// CC: Karthik Sparks DATE OF SERVICE: 09/30/2018 ATTENDING PHYSICIAN: Karthik Lau MD. EVENING SITTER: aJcky Garnica, PhD. CLINICAL PRESENTATION: The patient is an 82-year-old female admitted to the rehabilitation unit at [facility] for comprehensive inpatient rehabilitation program to improve functional mobility, activities of daily living and self-care and mental status secondary to deficits from an adenocarcinoma, status post hemicolectomy on 09/21/2018. Her assessment includes late effects cerebrovascular accident, history of cerebrovascular accident with significant expressive aphasia and right upper extremity greater than right lower extremity spastic hemiparesis, electrolyte abnormalities, urinary tract infection, hypertension, hyperlipidemia and generalized anxiety disorder. The patient also carries a diagnosis of depression. A complete description of her medical condition and history can be found in her medical record. Neuropsychological consultation was requested to provide assistance in the assessment of cognitive and emotional status and to provide recommendations and services. Prior to this most recent medical event, she was living with the assistance of her children in her home. In the home, she lives with one child with a developmental disability - intellectual disability (mental retardation). She has two daughters that provide assistance round the clock for her each alternate days, so 24-hour care is provided by two other sisters. The patient's in 2015 and another daughter in 2016. She also has a daughter that in 2008. The patient is a high school graduate. 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 TECHNIQUES UTILIZED: Clinical interview, review of medical records, staff consultation and behavioral observation, family interview - daughter and subtest and mini mental status exam brief for standard version - 2 and family interview daughter. EXAMINATION FINDINGS: The patient was alert and cooperative with the assessment. She presents with a severe expressive aphasia. Auditory comprehension is inconsistent, but one-step commands were followed consistently. She also could read brief notes such as yes or no successfully. She presents with a right neglect, appears consistent with an optic ataxia. She has trouble [address] [address] CONSULTATION Name: LETI TINOCO Be Room #: 506-1 [facility].#: [id number] Admission: 09/25/18 ������������������ Attend Phys: Karthik Lau MD Discharge: ������������������ Date of : 34 Report #: [id number] with judging location. The patient reports anxiety, but not subjective depression. However, her daughter reports that she has had periods of depression and was taking venlafaxine as an antidepressant. She appears to have inconsistent debility and calling for help when necessary. Her daughter indicates the patient has a strong desire to return home as soon as possible. Additionally, the daughter is concerned in regard to adequate pain coverage and continued use of the antidepressant. DIAGNOSTIC IMPRESSION: 1. 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 Auditory comprehension better than expression - [id number]. 2. Unspecified depressive disorder. 3. Generalized anxiety disorder. RECOMMENDATIONS: The patient will likely benefit from continued use of the antidepressant. Specific and clear statements can help with auditory comprehension. The use of a communication board may also be of benefit in helping her and clarifying needs such as going to the bathroom or pain and need for medication. The patient will likely do better in a more familiar environment within the home when necessary for discharge. She has a very supportive family who is able to assist in her care. Continued use of compensatory strategies for expressive speech will also be helpful. Thank you very much for allowing me to provide the consultation on this patient. ��������������������������������������������� ���������������������������������������� By: ��������������������������������������������� [id number] Jacky Garnica, PhD /nt
[~2018-09-25 09:50] MED LIST changes: +FLORANEX GRANU1 EACH PO
[2018-09-25 12:00] VITALS: BP 142/86
--- NOTE | 2018-09-25 12:18 | NUR ---
ASSUMED CARE OF PATIENT AT 0715, PATIENT ALERT AND ORIENTED X 4. PATIENT UP WITH ASSIST X 1 WITH QUAD CANE AND GAIT BELT. PATIENT DENIES PAIN THIS AM, RECEIVED SCHEDULED TYLENOL THIS AM PRIOR TO THE SHIFT. DR GÓMEZ HERE THIS AM, PATIENT WILL DISCHARGE TO [address] [place] [address] REHAB TODAY. REPORT GIVEN TO DON/RN. RIGHT HAND IV REMOVED PRIOR TO DISCHARGE, IV FLUIDS DISCONTINUED. FERRIS REMOVED EARLY THIS AM, PATIENT VOIDED X 2 PRIOR TO DISCHARGE. NO PAIN MEDS GIVEN PRIOR TO DISCHARGE, UPDATE GIVEN TO DAUGHTER/JORGE. DR COWART HERE THIS AM, AND WILL FOLLOW PATIENT ON [address] [place] [address]. PATIENT HAS PREVENA DRESSING IN PLACE, C/D/I.
--- NOTE | 2018-09-25 13:51 | NUR ---
1200 PATIENT ADMITTED TO ROOM 506. PATIENT IS ALERT AND ORIENTED, BUT HAS EXPRESSIVE APHAGIA. ANSWERS YES AND NO QUESTIONS. LUNGS ARE CLEAR AND DEMINISHED. ABD IS SOFT WITH BSX4. RUFUS DRESSING TO ABD IN PLACE. UP TO BEDSIDE COMMODE TO VOID GRAYSON COLORED URINE AND TO HAVE LARGE LOOSE STOOL. [facility]. PATIENT HAS EDEMA IN HER RIGHT LEG. PATIENT RIGHT ARM IS CONTRACTED. FALL AND SAFETY PROTOCOLS IN PLACE. DENIES PAIN AT THIS TIME. PT/OT/ST EVALS TO BE COMPLETED LATER. WILL CONTINUE TO MONITER. PATIENT HAS NO IV ACCESS
[2018-09-25 19:33] VITALS: BP 156/90
--- NOTE | 2018-09-26 04:25 | NUR ---
Assumed care of pt at 1915. Pt alert and oriented x4. Expressive aphasia noted. RUFUS drsg on abdomen is intact. Pivot transfers to BSC with assist of one using gait belt and walker. Voiding without difficulty. Appears to be sleeping when checked on hourly rounds. Bed alarm on.
[2018-09-26 05:15] LABS: HEMATOCRIT 36.5 % (37.0-47.0); HEMOGLOBIN 12.5 gm/dL (12.0-15.0); MCH 32.4 pg (26.0-34.0); MCHC 34.2 g/dL (28.0-37.0); MCV 94.9 fL (80.0-100.0); RBC 3.85 mil/uL (4.20-5.00); RDW 13.7 % (10.5-14.5); WBC 8.8 thou/uL (4.0-11.0)
[2018-09-26 05:25] LABS: CALCIUM 9.3 mg/dL (8.5-10.1); CREATININE 0.8 mg/dL (0.6-1.0); POTASSIUM 3.8 mmol/L (3.5-5.1)
[2018-09-26 08:52] VITALS: BP 139/90
--- NOTE | 2018-09-26 11:53 | NUR ---
ASSUMED CARE AT 0700. PATIENT IS ALERT AND ORIENTED, BUT HAS EXPRESSIVE APHAGIA FROM PREVIOUS STROKE. PATIENT HAS RIGHT ARM CONTRACTURE. PATIENT IS UP WITH QUAD CANE ON THE LEFT, GAIT BELT AND ASSIST OF 1. UP IN THE CHAIR FOR MEALS. LUNGS ARE CLEAR. ABD IS SOFT WITH BSX4. PATIENT HAS RUFUS DRESSING OVER ABD INCISION. UP TO THE BSC TO VOID GRASYON COLORED URINE. PATIENT CAN ANSER YES AND NO QUESTIONS. FALL AND SAFETY PROTOCOL IN PLACE. C/O ABD PAIN. MEDICATED WITH PRN PAIN MED. CONTINUES TO PROGRESS SLOWLY TOWARDS D/C GOALS. WILL CONTINUE TO MONITER
--- NOTE | 2018-09-26 14:27 | NUR ---
Cm assessment completed with the pt's dtr/dpoa Юлия. Pt is a&ox4 and able to follow commands. She can answer yes and no questions but had difficulty with expressive aphasia from a previous cva in 2007. The pt was admitted to rehab s/p hemicolectomy d/t a colon mass. The pt lives in her ranch style home with a disabled friend. They have a ramp to enter. Both are provided 24hr supervision and adl support from the pt's dtrs Юлия and Mary. Mary does the day shift and Юлия stays with them at night. The pt uses a quad cane with her left ue as her rt ue is contracted. She has a w/c for outtings and shower bench.They have grab bars in the bathroom and a pole in the bedroom. The pt has not had any hh f/u recently. Her dtrs set up her meds and do meal prep. Dc goal is to return home at her baseline being able to gait and transfer indep with her quad cane. Dtrs to continue with to help with adl's, home advisor, and med mngt. They are receptive to hh if recommended and deny any agency preference. Cm role and team conference introduced. Will followup with the pt/ dtr after team conf on 10/02/18.
[2018-09-26 20:01] VITALS: BP 141/77
--- NOTE | 2018-09-27 00:09 | NUR ---
PT ALERT AND ORIENTED X 4, EXPRESSIVE APHASIA. AMB TO BR WITH CANE AND ASSIST X 1. RIGHT ARM CONTRACTED. RUFUS DRESSING TO ABDOMEN C/D/I. PT DENIES PAIN OR DISCOMFORT. BED ALARM ON FOR SAFETY. PT CHECKED ON HOURLY ROUNDS.
[2018-09-27 08:43] VITALS: BP 147/67
--- NOTE | 2018-09-27 15:27 | NUR ---
ASSUMED CARES AT 0700. PT AWAKE, ALERT AND ORIENTED*4. PT CONTINUES TO HAVE EXPRESSIVE APHASIA, ABLE TO RESPOND APPROPRIATELY TO YES/NO QUESTIONS. INCISION ON ABDOMEN REMAINS INTACT. PT C/O ABDOMINAL PAIN 5/10, TRAMADOL ADMINISTERED NEEDED. RIGHT ARM REMAINS IMMOBILE/ CONTRACTED, MILD WEAKNESS ON RLE. MILD BLE EDEMA. PT UP WITH QUAD CANE AND SBA AND TOLERATED WELL. ALL VITALS REMAIN STABLE. Q1H VISUAL CHECKS. CALL LIGHT WITHIN REACH. FALL PRECAUTIONS IN PLACE
[2018-09-27 19:41] VITALS: BP 141/67
--- NOTE | 2018-09-28 00:24 | NUR ---
PT ALERT AND ORIENTED X 4 WITH EXPRESSIVE APHASIA. AMB TO BR WITH QUAD CANE AND ASSIST X 1 WITHOUT DIFFICULTY. RIGHT ARM CONTRACTED. RUFUS DRESSING TO ABDOMEN C/D/I. SCHEDULED TRAMADOL GIVEN AT HS. PT C/O ABD INCISION PAIN. BED ALARM ON FOR SAFETY. TURNED Q2H. PT APPEARS TO BE SLEEPING BETWEEN TURNS.
[2018-09-28 08:30] VITALS: BP 126/67
--- NOTE | 2018-09-28 12:23 | NUR ---
PT ALERT AND ORIENTED TIMES FOUR. VSS, ABD DRESSING C/D/I. PT DENIES PAIN/SOA. PT WORKED WELL WITH PT/OT TODAY. PT TOLERATES MEDS AND MEALS. PT SLOWLY PROGRESSING TOWRADS POC GOALS.
[2018-09-28 20:00] VITALS: BP 145/96
--- NOTE | 2018-09-29 03:54 | NUR ---
assumed care at approx 1900 evening 09/28. pt lying in bed at change of shift dozing off and on. pt took hs meds with water tolerating well. pt assisted up to bathroom with 1 assist. pt appears to be sleeping soundly with hourly rounding checks. bed alarm on and call light in reach. will continue to monitor.
[2018-09-29 04:14] LABS: ABSOLUTE NEUTROPHILS 5.5 thou/uL (1.4-8.2); BASOPHILS 1.3 % (0.0-2.0); EOSINOPHILS 10.8 % (0.0-3.0); HEMATOCRIT 33.5 % (37.0-47.0); HEMOGLOBIN 11.6 gm/dL (12.0-15.0); LYMPHOCYTES 16.5 % (24.0-44.0); MCH 32.5 pg (26.0-34.0); MCHC 34.7 g/dL (28.0-37.0); MCV 93.7 fL (80.0-100.0); MONOCYTES 11.5 % (1.0-8.0); PLATELET COUNT 365 thou/uL (150-400); POLYS 59.9 % (36.0-66.0); RBC 3.58 mil/uL (4.20-5.00); RDW 13.7 % (10.5-14.5); WBC 9.2 thou/uL (4.0-11.0)
[2018-09-29 04:18] LABS: CALCIUM 8.8 mg/dL (8.5-10.1); CREATININE 0.9 mg/dL (0.6-1.0); MAGNESIUM 1.9 mg/dL (1.8-2.4); POTASSIUM 3.7 mmol/L (3.5-5.1)
[2018-09-29 07:30] VITALS: BP 144/73
--- NOTE | 2018-09-29 08:49 | NUR ---
ASSUMED CARE AT 0700. PATIENT IS ALERT AND ORIENTED , PATIENT HAS EXPRESSIVE APHAGIA. PATIENT HAS RIGHT UPPER EXTREMITITY CONTRACTURE. PATIENT IS UP WITH QUAD CANE AND ASSIST OF 1 STAFF AND GAIT BELT TO AMBULATE. PATIENT IS UP IN CHAIR FOR MEALS. LUNGS ARE CLEAR, ABD IS SOFT WITH BSX4. VOIDS PER BSC, GRAYSON COLORED URINE. FALL AND SAFETY PROTOCOLS IN PLACE. DENIES PAIN AT THIS TIME. PATIENT REFUSED HER SCED TRAMADOL THIS A.M. CONTINUES TO PROGRESS SLOWLY TOWARDS D/C GOALS. WILL CONTNUE TO MONITER.
[2018-09-29 20:10] VITALS: BP 151/81
--- NOTE | 2018-09-30 03:39 | NUR ---
assumed care at approx 1900 evening 09/29. pt sitting up in recliner at change of shift resting. pt assisted into bed at hs and pt appears to be sleeping soundly at present. pt took hs meds with no problems. bed alarm on and call light in reach. will continue to monitor.
[2018-09-30 09:45] VITALS: BP 149/86
[2018-09-30 19:30] VITALS: BP 149/82
--- NOTE | 2018-09-30 19:39 | NUR ---
ASSUMED CARE AT APPROX 0715. PATIENT A/O TO PERSON AND SITUATION. EXPRESSIVE APHASIA NOTED. DENIES PAIN. RIGHT ARM CONTRACTED. AMBULATES X1 ASSIST GB AND QUAD CANE. ABDOMINAL INCISION PREVENA DRESSING INTACT, PUMP NOT ACTIVE, NO DRAINAGE NOTED. MEDS ADMINISTERED. FALL PRECAUTIONS IN PLACE. PATIENT CALLED APPROPIRATELY FOR ASSISTANCE TO TOILET. STAYED CONTINENT. UP IN RECLINER FOR MEALS. RESTING IN RECLINER AT CHANGE OF SHIFT.
--- NOTE | 2018-10-01 04:41 | NUR ---
ASSUMED CARE OF PT AT 1915. PT ALERT, ORIENTED X4, CALM AND COOPERATIVE. DENIES PAIN, NAUSEA OR DYPSNEA. ILEOSTOMY INTACT, LARGE AMOUNT OF FLATUS AND LIQUID GREENISH BROWN STOOL. C/O BACK PAIN, RELIEVED WITH PO LORTAB AND VOLTAREN. AMBULATES TO BATHROOM WITHOUT ASSIST USING GAIT BELT AND WALKER. HAS APPEARED TO BE SLEEPING WHEN CHECKED ON HOURLY ROUNDS. FALL PRECAUTIONS IN PLACE.
--- NOTE | 2018-10-01 04:58 | NUR ---
ASSUMED CARE OF PT AT 1915. PT ALERT AND ORIENTED X4. AMBULATES TO BATHROOM WITH STANDBY ASSIST USING GAIT BELT AND CANE. DENIES PAIN, NAUSEA OR DYPSNEA. EXPRESSIVE APHASIA UNCHANGED. RIGHT ARM CONTRACTED. HAS APPEARED TO BE SLEEPING WHEN CHECKED ON HOURLY ROUNDS. FALL PRECAUTIONS IN PLACE.
[2018-10-01 09:38] VITALS: BP 144/65
--- NOTE | 2018-10-01 12:42 | NUR ---
ASSUMED CARES AT 0700. PT AWAKE, ALERT AND ORIENTED*4. DENIES PAIN AT THIS TIME, TRAMADOL SCHEDULED Q8H AND PRN. ABDOMINAL INCISION REMAINS INTACT, RUFUS DRESSING DR AND INTACT. PT CONTINUES TO HAVE EXPRESSIVE APHASIA, ANSWERING Y/N QUESTIONS APPROPRIATELY. CONTINUES TO HAVE MILD BLE EDEMA. CONTRACTURE OF RUE, WEAKNESS ON LEFT LOWER EXTREMITY CONTINUES. PT UP WITH 1 PERSON MIN ASSIST, QUADCANE AND GAITBELT. Q1H VISUAL CHECK. CALL LIGHT WITHIN REACH. FALL PRECAUTIONS IN PLACE
[2018-10-01 19:50] VITALS: BP 140/89
--- NOTE | 2018-10-02 02:40 | NUR ---
PT ALERT AND ORIENTED X 4. AMB TO BR WITH QUAD CANE AND ASSIST X 1. ABD INCISION C/D/I WITH CHARO. [place] BANDAID DRESSING INTACT. PT DENIES PAIN OR DISCOMFORT. BED ALARM ON FOR SAFETY. PT APPEARS TO BE SLEEPING ON HOURLY ROUNDS.
[2018-10-02 08:00] VITALS: BP 135/80
--- NOTE | 2018-10-02 11:35 | NUR ---
ASSUMED CARE AT 0700. PATIENT IS ALERT AND ORIENTED, BUT HAS EXPRESSIVE APHAGIA. PATIENT ANSWERS YES AND NO QUESTIONS. PATIENT IS UP WITH QUAD CANE AND ASSIST OF 1, AND GAIT BELT TO THE BR TO VOID GRAYSON COLORED URINE. LUNGS ARE CLEAR. ABD IS SOFT WITH BSX4. PATIENT RIGHT ARM IS CONTRACTED. UP IN CHAIR FOR BREAKFAST. FALL AND SAFETY PROTOCOLS IN PLACE. DENIES ANY PAIN AT THIS TIME. CONTINUES TO PROGESS TOWARDS D/C GOALS. WILL CONTINUE TO MONITER.
--- NOTE | 2018-10-02 12:08 | NUR ---
Nutrition: pt seen per followup. Has been eating fairly well, 50-100% of meals and enjoys the magic cup supplements once daily. Understands how to order meals, reinfroced with dtr as pt will be unable due to expressive aphasia. No new weight since admit. Change to low nutrition risk due to adequate intake with interventions in place.
--- NOTE | 2018-10-02 12:23 | NUR ---
team meeting, recommendation dc home with continued care from both daughters, by communication board address by [facility] ( nursing, pt, ot ).
--- NOTE | 2018-10-02 16:20 | NUR ---
DCP NOTIFIED [facility] OF REFERRAL PT. WILL NEED PT/OT/NURSING SPOKE WITH ADM. NGUYEN AND THEY WILL REVIEW. ANTICIPATE DC 10/05. DCP TO FOLLOW.
[2018-10-02 19:30] VITALS: BP 143/71
--- NOTE | 2018-10-03 00:25 | NUR ---
PT ALERT AND ORIENTED X 4 WITH EXPRESSIVE APHASIA. AMB TO BR WITH QUAD CANE AND ASSIST X 1 WITHOUT DIFFICULTY. DRESSING TO ABDOMEN C/D/I. PT DENIES PAIN OR DISCOMFORT. REFUSED SCHEDULED TRAMADOL AT HS. BED ALARM ON FOR SAFETY. PT APPEARS TO BE SLEEPING ON HOURLY ROUNDS.
[2018-10-03 07:35] VITALS: BP 152/79
--- NOTE | 2018-10-03 09:55 | NUR ---
ASSUMED CARE AT 0700. PATIENT IS ALERT AND ORIENTED, BUT HAS EXPRESSIVE APHAGIA. PATIENT RIGHT ARM IS CONTRACTED. PATIENT IS UP WITH QUAD CANE TO AMBULATE WITH P.T. PLAN FOR D/C ON MONDAY. ABD IS SOFT WITH BSX4. PATIENT ABD INCISION /CHARO DRY AND INTACT. PATIENT HAS [place] BANDAID IN PLACE. FALL AND SAFETY PROTOCOLS IN PLACE. DENIES ANY PAIN AT THIS TIME. ST TO WORK ON PICTURE BOARD WITH PATIENT TODAY. CONTINUES TO PROGRESS TOWARDS D/C GOALS. WILL CONTINUE TO MONITER.
--- NOTE | 2018-10-03 15:12 | NUR ---
All parties anticipating dc to home with , [facility] on Monday. Pt's dtr called today and said she will pick her up around 2:30pm that day. Will follow.
--- NOTE | 2018-10-03 15:17 | NUR ---
PATIENT'S DAUGHTER REQUESTED INFORMATION ON PURCHASING A TUB TRANSFER BENCH. ISSUED PATIENT A PHOTO OF THE TRANSFER BENCH WELL LOCATIONS/OPTIONS PATIENT'S DAUGHTER WILL HAVE TO PURCHASE THE TUB TRANSFER BENCH. THERE IS A COPY IN THE PATIENT'S ROOM AND WITH NURSING TO PROVIDE AT DISCHARGE.
[2018-10-03 19:18] VITALS: BP 107/70
--- NOTE | 2018-10-04 02:58 | NUR ---
assumed care at approx 1900 evening 10/03. pt lying in bed with head of bed elevated resting comfortably. abd incision covered with [place] drsg c/d/i. pt took hs meds with water tolerating well. pt appears to be sleeping soundly with hourly rounding checks. bed alarm on and call light in reach. will continue to monitor.
[2018-10-04 08:52] VITALS: BP 163/80
--- NOTE | 2018-10-04 10:48 | NUR ---
ASSUMED CARES AT 0700. PT AWAKE, ALERT AND ORIENTED*4.PT CONTINUES TO HAVE EXPRESSIVE APHASIA, YES/NO QUESTIONS UTILISED AND PT WAS ABLE TO COMMUNICATE NEEDS EFFECTIVELY. DENIES PAIN. BP ELEVATED THIS AM, BP LOWERING MEDS ADMINISTERED. ABDOMINAL INCISION REMAINS DRY AND INTACT, CHARO INTACT, [place] DRESSING INTACT. PT CONTINUES TO HAVE RIGHT-SIDED WEAKNESS, RUE CONTRACTURE. UP WITH 1 PERSON MIN ASSIST GAITBELT AND QUAD CANE AND TOLERATED WELL. Q1H VISUAL CHECKS. CALL LIGHT WITHIN REACH. FALL PRECAUTIONS IN PLACE
[2018-10-04] MEDS ORDERED: SENNA8.6 MG PO (16:15)
[2018-10-04] MEDS ORDERED: FLORANEX GRANU1 EACH PO (16:15)
[2018-10-04] MEDS ORDERED: MIRALAX17 GM PO (16:15)
[2018-10-04] MEDS ORDERED: EFFEXOR XR37.5 MG PO (16:18)
[2018-10-04 20:07] VITALS: BP 134/66
--- NOTE | 2018-10-05 02:03 | NUR ---
assumed care at approx 1900 evening 10/04. pt sitting up in recliner at change of shift resting and watching tv. pt alert and oriented x4, pleasant and cooperative. pt up to bathroom with quad cane and 1 assist tolerating well. pt took hs meds with water tolerating well. pt appears to be sleeping soundly with hourly rounding checks. bed alarm on and call light in reach. will continue to monitor.
[2018-10-05 08:23] VITALS: BP 146/82
[2018-10-05 09:18] VITALS: BP 146/82
[2018-10-05 09:58] VITALS: BP 146/82
--- NOTE | 2018-10-05 09:59 | NUR ---
PT. DISCHARGING TODAY TO HOME WITH [facility]. NOTIFIED [facility] OF DC TODAY AND THEY WILL NOTIFY PT. OT TIME OF VISITS.
--- NOTE | 2018-10-05 10:23 | NUR ---
ASSUMED CARES AT 0700. PT AWAKE, ALERT AND ORIENTED *4. CONTINUES TO HAVE EXPRESSIVE APHASIA, ANSWERS YES/NO QUESTIONS APPROPRIATELY, USING CHART TABLE TO COMMUNICATE. VITALS REMAIN STABLE. DENIES PAIN. ABDOMINAL INCISION REMAINS INTACT, CHARO INTACT. CONTINUES TO HAVE BLE EDEMA. PT UP WITH 1 PERSON MIN ASSIST, QUADCANE AND GAITBELT, TOLERATED WELL. DISCHARGE PLANNING COMPLETED WITH DAUGHTER AND PT. Q1H VISUAL CHECKS. CALL LIGHT WITHIN REACH. FALL PRECAUTIONS IN PLACE
--- NOTE | 2018-10-05 10:45 | NUR ---
CORNER FORMER TRAINED PATIENT'S DAUGHTERS IN USE OF COMMUNICATION CARDS AND COMMUNICATION BOARDS PRIOR TO DISCHARGE.
--- NOTE | 2018-10-05 11:20 | NUR ---
Nutrition: assess d/t consult for diet instructions. Pt was leaving during RD visit. Provided family with handout on fiber-restricted diet and contact info for outpatient RD.
== END 2018-10-05 11:17 | disposition home health service (06) | DRG 375 ==
LOC: ENTRNSPT 10-05 11:07 → EDTRNSPTSTS 10-05 11:11
PROVIDERS: Nurse Practitioner; Nurse Practitioner Family; ADMIT Physical Medicine & Rehabilitation
DX: C18.9 Malignant neoplasm of colon, unspecified (principal); N39.0 Urinary tract infection, site not specified; I69.351 Hemiplegia and hemiparesis following cerebral infarction affecting right dominant side; I10 Essential (primary) hypertension; G40.909 Epilepsy, unspecified, not intractable, without status epilepticus; Z90.49 Acquired absence of other specified parts of digestive tract; Z87.891 Personal history of nicotine dependence; E78.5 Hyperlipidemia, unspecified; F41.9 Anxiety disorder, unspecified
CPT/HCPCS: 10112

== ENCOUNTER 2019-07-29 17:02 | Inpatient (IN) | payer OTHER ==
[~2019-07-29] VITALS: Ht 152.4 cm; Wt 63.0 kg
[~2019-07-29 17:02] MED LIST changes: +MIRALAX17 GM PO; +SENNA8.6 MG PO
[2019-07-29 17:06] VITALS: BP 167/92
[2019-07-29] MEDS ORDERED: ASA81BEC PO (17:13)
[2019-07-29 17:55] LABS: HEMATOCRIT 43.5 % (37.0-47.0); MCHC 32.3 g/dL (28.0-37.0); PLATELET COUNT 264 thou/uL (150-400); RBC 4.68 mil/uL (4.20-5.00); RDW 14.6 % (10.5-14.5); WBC 5.3 thou/uL (4.0-11.0)
[2019-07-29 17:55] LABS: BE(vivo) -3.9 mmol/L (-2 to +3); PCO2 33.2 mmHg (35.0-45.0); PO2 67.2 mmHg (80.0-100.0); pH 7.398 (7.360-7.450); sO2 93.6 % (92.0-98.0)
[2019-07-29 18:06] LABS: ANION GAP 8 mmol/L (7-16); BUN 18 mg/dL (7-18); CALCIUM 9.7 mg/dL (8.5-10.1); CHLORIDE 105 mmol/L (98-107); CO2 27 mmol/L (21-32); CREATININE 0.9 mg/dL (0.6-1.0); GLUCOSE 85 mg/dL (74-106); POTASSIUM 4.2 mmol/L (3.5-5.1); SODIUM 140 mmol/L (136-145)
[2019-07-29 18:16] LABS: ALBUMIN 4.1 g/dL (3.4-5.0); SGOT 25 U/L (15-37); SGPT 28 U/L (30-65); TOTAL BILIRUBIN 0.4 mg/dL (<0.1-1.0); TROPONIN-I <0.06 ng/mL (<0.06)
[2019-07-29 18:44] LABS: ABSOLUTE NEUTROPHILS 3.2 thou/uL (1.4-8.2); PLATELET ESTIMATE NORMAL
--- NOTE | 2019-07-29 21:33 | NUR ---
ATTEMPTED TO CALL REPORT. THE PHONE WAS NOT ANSWERED AT THIS TIME.
--- NOTE | 2019-07-29 21:45 | NUR ---
CONTACTED THE CCU. THE NURSE WAS GOING TO CALL ME BACK WHEN SHE WAS AVAILIBLE, ACCORDING TO QIAN PIÑA
[2019-07-29 21:53] VITALS: BP 167/105
[2019-07-30 04:54] VITALS: BP 156/74
--- NOTE | 2019-07-30 05:14 | NUR ---
PT ADMITTED FROM ED WITH CHF AND HYPOXIA.ARRIVED TO UNIT VIA CART.VSS.ON O2 AT 4LITERS PN.APHASIA AND RIGHT SIDED WEAKNESS PRESENT 2/2 HX CVA.PT A/O TO SELF.FOLLOWS COMMANDS APPROPRIATELY.RESPONDS APPROPRIATELY TO YES/NO COMMANDS.INCONT OF BLADDER.PERICARE PROVIDED.ON MONITOR SR W/1DEG AVB.DENIES PAIN.ORIENTED TO AND CALL LIGHT SYSTEM WITH RETURN DEMONSTRATION.ADMISSION ASSESSMENT COMPLETED.REVIEWED POC.PT DENIES ANY CONCERNS AT THIS TIME.PT RESTING IN NO ACUTE DISTRESS.ECHO AND CONSULT FOR CIRCUS TRAIN SUPERVISOR TALISHA.WILL CONT TO MONITOR PER POC.
[2019-07-30 05:25] LABS: CALCIUM 9.4 mg/dL (8.5-10.1); CREATININE 0.9 mg/dL (0.6-1.0); POTASSIUM 3.5 mmol/L (3.5-5.1)
--- NOTE | 2019-07-30 07:54 | EKG ---
[address] [address] ELECTROCARDIOGRAM REPORT Name: LETI TINOCO Room #: 207-P ADM IN M.R.#: [id number] Admission: 07/29/19 Attend Phys: Reyna Juarez MD Discharge: Date of : 33 Report #: [id number] THIS REPORT FOR: //name// [facility] ED Test Date: 2019-07-29 Test Time: 18:00:05 Pat Name: LETI TINOCO Department: Room: [facility] Gender: F It Desktop Support Technician: LATOYA : 1935 Requested By: Clara Grider Order Number: [id number] MD: Frank Mccarcken Measurements Intervals [place] Rate: 79 P: 63 W[place]: 203 QRS: 141 QRSD: 94 T: 34 QT: 431 QTc: 495 Interpretive Statements Sinus rhythm Probable RVH w/ secondary repol abnormality Compared to ECG 09/19/2018 10:09:52 ST (T wave) deviation no longer present Electronically Signed On 07-30-2019 7:54:20 COATER OPERATOR by Frank Mccracken [email or web address] <ELECTRONICALLY SIGNED> By: Frank Mccracken MD 07/30/19 0754 1800 1800 Frank Mccracken MD /EPI
[2019-07-30 08:10] VITALS: BP 162/85
--- NOTE | 2019-07-30 12:02 | 2DMMODE ---
[facility] [address] [place] [address] 2 D/M-MODE ECHOCARDIOGRAM Name: LETI TINOCO Room #: 207-P ADM IN M.R.#: [id number] Admission: 07/29/19 Attend Phys: Zeke Bautista Discharge: Date of : 33 Report #: [id number] THIS REPORT FOR: //name// APPROVED REPORT Study performed: 07/30/2019 10:54:50 EXAM: Comprehensive 2D, Doppler, and color-flow Echocardiogram Patient Location: Bedside Room #: [facility] Status: routine BSA: 1.60 HR: 80 bpm BP: 156/74 mmHg Rhythm: NSR Other Information Study Quality: Adequate Indications Congestive Heart Failure Dyspnea Hypertension/HDD 2D Dimensions RVDd: 51.09 mm IVSd: 8.85 (7-11mm) LVOT Diam: 23.54 (18-24mm) LVDd: 43.09 mm PWd: 9.04 (7-11mm) Ascending Ao: 34.49 (22-36mm) LVDs: 30.90 (25-40mm) Aortic Root: 32.19 mm IVC: 19.00 mm Volumes Left Atrial Volume (Systole) Single Plane 4CH: 34.06 mL Single Plane 2CH: 24.46 mL LA ESV Index: 20.00 mL/m2 Aortic Valve AoV Peak Robert.: 0.93 m/s AO Peak Gr.: 3.50 mmHg LVOT Max P.87 mmHg LVOT Max V: 0.68 m/s NAOMI Vmax: 3.18 cm2 Pulmonary Valve PV Peak Robert.: 0.58 m/s PV Peak Gr.: 1.36 mmHg [facility] [address] [address] 2 D/M-MODE ECHOCARDIOGRAM Name: LETI TINOCO Room #: 207-[facility].#: [id number] Admission: 07/29/19 Attend Phys: Zeke Bautista Discharge: Date of : 33 Report #: [id number] Tricuspid Valve TR Peak Robert.: 3.56 m/s TR Peak Gr.: 50.71 mmHg PA Pressure: 61.00 mmHg Left Ventricle The left ventricle is normal size. There is normal left ventricular wall thickness. The left ventricular systolic function is normal. The left ventricular ejection fraction is within the normal range. LVEF is >55%. The left ventricular diastolic function is abnormal. Right Ventricle Right ventricle is dilated. Right ventricle is hypokinetic. Atria The left atrium size is normal. Right atrium is dilated. Aortic Valve The aortic valve is normal in structure. The Aortic valve is sclerotic. Mild aortic regurgitation. There is no aortic valvular stenosis. Mitral Valve The mitral valve is normal in structure. Trace mitral regurgitation. No evidence of mitral valve stenosis. Tricuspid Valve The tricuspid valve is normal in structure. There is mild tricuspid regurgitation. Estimated PAP 61 mmHg. There is moderate pulmonary hypertension. Pulmonic Valve The pulmonary valve is normal in structure. Mild pulmonic regurgitation. Great Vessels The aortic root is normal in size. IVC is normal in size and collapses <50% with inspiration. Pericardium There is no pericardial effusion. <Conclusion> [facility] [address] [place] [address] 2 D/M-MODE ECHOCARDIOGRAM Name: LETI TINOCO Room #: 207-P [facility] IN ..#: [id number] Admission: 07/29/19 Attend Phys: Zeke Bautista Discharge: Date of : 33 Report #: [id number] The left ventricle is normal size. The left ventricle is normal size. LVEF is >55%. Right ventricle is dilated. Right ventricle is hypokinetic. Right atrium is dilated. The aortic valve is normal in structure. The Aortic valve is sclerotic. Mild aortic regurgitation. The mitral valve is normal in structure. Trace mitral regurgitation. The tricuspid valve is normal in structure. There is mild tricuspid regurgitation. Estimated PAP 61 mmHg. There is moderate pulmonary hypertension. The pulmonary valve is normal in structure. Mild pulmonic regurgitation. There is no pericardial effusion. <ELECTRONICALLY SIGNED> By: Estuardo Vance MD 07/30/19 1202 1202 120 Estuardo Vance MD /INF
--- NOTE | 2019-07-30 12:02 | NUR ---
ALERT, ORIENTED. EXPRESSIVE APHASIA. ADULT CHILDREN AT BEDSIDE. INCONTINENT OF URINE; DIURESING ON LASIX. WORKING WITH PT. ST CONSULTED BY DR. LANTIGUA. SR PER TELE. WILL CONTINUE TO FOLLOW CLOSELY.
[2019-07-30 14:00] VITALS: BP 162/85
[2019-07-30 14:54] VITALS: BP 162/85
[2019-07-30 17:13] VITALS: BP 149/89
[2019-07-30 19:58] VITALS: BP 140/72
[2019-07-31 00:30] VITALS: BP 132/76
[2019-07-31 04:45] VITALS: BP 121/86
--- NOTE | 2019-07-31 04:59 | NUR ---
PATIENTS CARES WERE ASSUMED AT SHIFT CHANGE. PATIENT WAS ASSESSED AND MEDS WERE PASSED. PATIENT CONTINUES TO SPEEK SOFTLY AND VERY SLOW DUE TO HER STROKE. sHE IS ABLE TO GET HER NEED MET PATIENCE BY STAFF IS A MUST. HOURLY ROUNDING WAS DONE. THE BED IS IN A LOW AND LOCKED POSITION. THE BED ALARM IS ON.
[2019-07-31 06:03] LABS: CALCIUM 9.4 mg/dL (8.5-10.1); CREATININE 1.1 mg/dL (0.6-1.0); POTASSIUM 3.4 mmol/L (3.5-5.1)
[2019-07-31 08:35] VITALS: BP 138/75
--- NOTE | 2019-07-31 10:12 | NUR ---
ASSUMED CARE OF PT APPROX 0715, A&0X3-4, IS NOT IMPULSIVE, NEEDS TIME TO ANSWER QUESTIOINS D/T RESIDUAL PAST STROKE SX. FAMILY AT BEDSIDE, THEY TRY TO ANSWER QUESTIONS FOR HER,THEN STOP TO ALLOW HER. PADDED BED FOR SEIZURE PRECAUTIONS. PT STATES SHE HASN'T HAD ONE IN TWO YEARS, TAKES MEDS FOR THEM.SEE SEPARATE INTERVENTIONS FOR ASSESSMENTS, CARDIAC MONITORED. DAUGHTERS MENTION HX OF GI ISSUES AND WANT TO ENSURE SHE HAS A BM. HAD PRUNE JUICE, AND MEDICATIONS FOR DAILY BM. WILL CONTINUE TO MONITOR. ENCOURAGED ALL TO USE CALL LIGHT FOR ANY NEEDS
[2019-07-31 12:15] VITALS: BP 119/71
--- NOTE | 2019-07-31 12:29 | NUR ---
met with patient who has expressive aphasia from prev stroke. She lives in home with 2 dtrs who provide 16/02 supervision. She uses a jacqui walker and all needs on one level. Dtr reports she understands everything going on but her aphasia is limiting. Dtr reports they assist with adls as needed. She reports patient likes to watch television chris news. Dtr hopeful for dc home. They request HH with [facility]. Faxed referral for review. Dtr buying scale today. patient may need home oxygen discussed with dtr.
[2019-07-31 20:15] VITALS: BP 114/65
[2019-08-01 00:15] VITALS: BP 125/71
[2019-08-01 04:45] VITALS: BP 121/66
[2019-08-01 05:33] LABS: CALCIUM 9.4 mg/dL (8.5-10.1); CREATININE 1.1 mg/dL (0.6-1.0); POTASSIUM 3.8 mmol/L (3.5-5.1)
--- NOTE | 2019-08-01 07:47 | NUR ---
PATIENTS CARE WAS ASSUMED AT SHIFT CHANGE. PATIENT WAS ASSESSED AND MEDS WERE PASSED. PATIENT DID SLEEP THE MAJORITY OF THIS SHIFT. HOURLY ROUNDING WAS DONE. THE BED IS IN A LOW AND LOCKED POSITION.
[2019-08-01 09:29] VITALS: BP 162/85
--- NOTE | 2019-08-01 09:30 | NUR ---
REFERRAL FAXED ON 07/31 TO [facility] SPOKE WITH [facility] IN INTAKE SHE CAN ACCEPT AT DC.
--- NOTE | 2019-08-01 10:37 | NUR ---
ASSUMED CARE AT 0700, SHIFT ASSESSMENT DONE, NPO SINCE LAST NIGHT FOR STRESS TEST. LEFT FOR TEST AT 0915. WAS ON 2LNC. NSR ON TELE. DR LANTIGUA INDICATED IF NEGATIVE FOR STRESS TEST TODAY, MIGHT GET DISCHARGED LATER ON TODAY. WILL CONTINUE TO ASSESS AND ASSIST WITH ADLs NEEDED.
[2019-08-01 12:00] VITALS: BP 122/88
[2019-08-01] MEDS ORDERED: DEMADEX20 MG PO (12:54)
--- NOTE | 2019-08-01 12:54 | NUR ---
Pt having stess test and plan for dc home with hh today if negative. [facility] can accept. DC land planner to fax the hh orders. Pt now off o2 with 94% sat on room air. Dtr and pt updated.
--- NOTE | 2019-08-01 13:49 | NUR ---
ASSUMED CARE OF PT APROX 1245 AFTER PREVIOUS RNS CARE. SHE'S IN [facility], JUST HAD BM, AWAITING POSSIBLE D/C. CALLED FAMILY AND THEY WERE TOLD TO BE HERE AT 3PM. LET THEM KNOW WE NEED TO AWAIT RESULTS FOR HER STRESS TEST AND I'D KEEP IN TOUCH WITH THEM. PT HAD TYLENOL FOR GENERAL ACHES AND PAINS, SITTING UP IN CHAIR. SEE SEPARATE INTERVENTIONS FOR ASSESSMENTS, CARDIAC MONITORED. WILL CONTINUE TO MONITOR
--- NOTE | 2019-08-01 14:17 | NUR ---
FAXED DC ORDERS/SUMMARY TO [facility] SPOKE WITH OSCAR IN INTAKE SHE RECEIVED DC ORDERS AND WILL NOTIFY PT TIME OF VISITS.
[2019-08-01 15:04] VITALS: BP 162/85
== END 2019-08-01 16:28 | disposition home health service (06) | DRG 291 ==
LOC: ER 17:02 → 2N 18:56 → EROBS 18:56 → 2N 22:11 → ENTRNSPT 08-01 16:11 → 2N 08-01 16:28
PROVIDERS: Nurse Practitioner Family; Physician Assistant; ADMIT Hospitalist
DX: I11.0 Hypertensive heart disease with heart failure (principal); I50.31 Acute diastolic (congestive) heart failure; J96.01 Acute respiratory failure with hypoxia; I69.351 Hemiplegia and hemiparesis following cerebral infarction affecting right dominant side; N17.9 Acute kidney failure, unspecified; G40.909 Epilepsy, unspecified, not intractable, without status epilepticus; F41.9 Anxiety disorder, unspecified; F32.9 Major depressive disorder, single episode, unspecified; E78.5 Hyperlipidemia, unspecified; E55.9 Vitamin D deficiency, unspecified; R91.1 Solitary pulmonary nodule; E87.6 Hypokalemia; E04.2 Nontoxic multinodular goiter; I27.21 Secondary pulmonary arterial hypertension; I07.1 Rheumatic tricuspid insufficiency; Z99.81 Dependence on supplemental oxygen; Z85.038 Personal history of other malignant neoplasm of large intestine; Z90.49 Acquired absence of other specified parts of digestive tract; I69.320 Aphasia following cerebral infarction; Z79.82 Long term (current) use of aspirin; Z79.899 Other long term (current) drug therapy; Z87.891 Personal history of nicotine dependence; Z82.49 Family history of ischemic heart disease and other diseases of the circulatory system
CPT/HCPCS: 10081

== ENCOUNTER 2020-01-25 20:14 | Inpatient (IN) | payer OTHER ==
[~2020-01-25] VITALS: Ht 162.6 cm; Wt 68.0 kg
[2020-01-25 20:14] VITALS: BP 110/63
[~2020-01-25 20:14] MED LIST changes: +ASA81BEC PO; +DEMADEX20 MG PO
[2020-01-25 20:36] LABS: ABSOLUTE NEUTROPHILS 3.4 thou/uL (1.4-8.2); BASOPHILS 0.3 % (0.0-2.0); EOSINOPHILS 1.5 % (0.0-3.0); HEMATOCRIT 48.5 % (37.0-47.0); HEMOGLOBIN 16.3 gm/dL (12.0-15.0); LYMPHOCYTES 25.2 % (24.0-44.0); MCH 33.2 pg (26.0-34.0); MCHC 33.7 g/dL (28.0-37.0); MCV 98.7 fL (80.0-100.0); MONOCYTES 10.4 % (1.0-8.0); PLATELET COUNT 245 thou/uL (150-400); POLYS 62.6 % (36.0-66.0); RBC 4.92 mil/uL (4.20-5.00); RDW 14.1 % (10.5-14.5); WBC 5.5 thou/uL (4.0-11.0)
[2020-01-25 20:43] LABS: CALCIUM 9.1 mg/dL (8.5-10.1); CREATININE 1.5 mg/dL (0.6-1.0); POTASSIUM 3.1 mmol/L (3.5-5.1)
[2020-01-25 20:49] LABS: ALBUMIN 4.1 g/dL (3.4-5.0); TOTAL BILIRUBIN 0.3 mg/dL (0.2-1.0); TOTAL PROTEIN 8.3 g/dL (6.4-8.2)
[2020-01-25 22:08] LABS: BE(vivo) -3.3 mmol/L (-2 to +3); HCO3 20.7 mmol/L (22.0-26.0); PCO2 34.4 mmHg (35.0-45.0); PO2 45.9 mmHg (80.0-100.0); pH 7.397 (7.360-7.450); sO2 82.2 % (92.0-98.0)
[2020-01-25 22:52] VITALS: BP 108/55
[2020-01-25 23:53] VITALS: BP 109/55
[2020-01-26 00:46] VITALS: BP 130/52
[2020-01-26 04:45] VITALS: BP 132/70
--- NOTE | 2020-01-26 05:30 | NUR ---
ASSUME CARE 0000 FROM ED. PT/VITALS STABLE. DENIES ANY PAIN. NO DISTRESS NOTED. FLACID EXTREMITIES ON RIGHT SIDE. MOVES LEFT EXTREMITIES WELL. MODERATELY TOLERATES ACTIVITIES. FERRIS IN PLACE DUE TO INCOTINENCE. A/O X 4 AND ANSWERS QUESTIONS APPROPRIATELY. SLURRING AND APHASIA NOTED WITH SPEECH. PT IS VERY PLEASANT. STR ON MONITOR. ASSESSMENT CHARTED. PROGRESSING WELL WITH POC. PLAN IS TO CONTIUE HYDRATION AND CONT O2 SUPPLEMENTATIO TO IMPROVE RESP FUNCTION. WILL CONTINUE TO MONITOR AND FOLLOW WITH POC
[2020-01-26 05:39] LABS: CREATININE 1.3 mg/dL (0.6-1.0); POTASSIUM 3.7 mmol/L (3.5-5.1)
[2020-01-26 05:44] LABS: MAGNESIUM 2.2 mg/dL (1.8-2.4); TROPONIN-I <0.06 ng/mL (<0.06)
[2020-01-26 07:57] VITALS: BP 126/75
[2020-01-26 12:15] VITALS: BP 124/56
[2020-01-26 16:15] VITALS: BP 126/62
--- NOTE | 2020-01-26 16:51 | NUR ---
ASSESSMENT CHARTED. PT ALERT TO SELF. REPORT HAVING ABD PAIN. DR. RAMEY NOTIFIED. NO NEW ORDERS. HAS RIGHT SIDED WEAKNESS. PT/OT CONSULTED. DAUGHTER UPDATED ON PT'S PROGRESS. FALL PRECAUTION IN PLACE. WILL CONTINUE TO MONITOR.
[2020-01-26 19:43] VITALS: BP 122/73
[2020-01-27] MEDS ORDERED: NORVASC 2.5 MG2.5 M1 PO (00:51)
[2020-01-27 01:07] VITALS: BP 138/91
--- NOTE | 2020-01-27 01:45 | NUR ---
0055 TRANSFERRED PT TO [facility]. PT/VITALS STABLE. NO DISTRESS NOTED. WILL CONTINUE TO FOLLOW WITH POC
--- NOTE | 2020-01-27 01:50 | NUR ---
ASSUMED CARE OF PT AT 0100. PT IS A/O WITH APHASIA. DIFFICULT TO UNDERSTAND AT TIMES. YES/NO QUESTIONS WORK TO COMMUNICATE WELL. PT HAS NO C/O PAIN OR DISCOMFORT AT THIS TIME. VSS. O2 LEVEL WAS 93 WITH NO SIGNS OF DIFFICULTY BREATHING. PT IS NOW IN HER BED AND APPEARS TO BE SLEEPING. FALL PRECAUTIONS ARE IN PLACE, CALL LIGHT IS WITHIN REACH.
[2020-01-27 07:03] VITALS: BP 131/69
--- NOTE | 2020-01-27 07:48 | EKG ---
[facility] [place] [address] [place] [address] ELECTROCARDIOGRAM REPORT Name: LETI TINOCO Room #: 452-P ADM IN M.R.#: [id number] Admission: 01/25/20 Attend Phys: Ritesh Rivers MD Discharge: Date of : 33 Report #: [id number] THIS REPORT FOR: cc: Breana Sparks MD, Jennifer L MD Lundgren,Blair Anne MD [facility] ~ THIS REPORT FOR: //name// [facility] ED Test Date: 2020-01-25 Test Time: 23:49:22 Pat Name: LETI TINOCO Department: Room: [facility] Gender: F Sifter Operator: SILIVA : 1935 Requested By: Srikanth Fong Order Number: [id number] MD: Blair Bailey Measurements Intervals [place] Rate: 79 P: 43 [place]: 192 QRS: 145 QRSD: 110 T: -60 QT: 430 QTc: 494 Interpretive Statements Sinus rhythm 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
--- NOTE | 2020-01-27 11:29 | NUR ---
ASSUMED CARE AT 0700. PT IS ALERT AND ORIENTED, HAS SOME RESIDUAL AFFECTS OF PREVIOUS STROKE. DIFFICULTY EXPRESSING HERSELF AT TIMES. VSSA/2L O2. NSR ON TELE. DOES HAVE BLE EDEMA. FERRIS IN PLACE DRAINING WELL. TOLERATING DIET, DOES C/O ABDOMINAL PAIN. PIV X2 WITHOUT ISSUES. PT/OT WORKING WITH HER. FALL PRECAUTIONS IN PLACE. CALL LIGHT IN REACH. DAUGHTER, ELIE, AT BEDSIDE. WILL CONTINUE TO MONITOR
[2020-01-27 15:41] VITALS: BP 113/64
[2020-01-27 19:15] VITALS: BP 131/80
--- NOTE | 2020-01-28 05:36 | NUR ---
Pt. rested quietly during the night when checked on during frequent rounds. She does have some expressive aphasia, but denies any discomfort when ques- tioned. VSS. Bed alarm is on.
[2020-01-28 07:20] VITALS: BP 119/68
[2020-01-28 07:41] LABS: URINE BILIRUBIN NEGATIVE (Negative); URINE BLOOD 3+ (Negative); URINE COLOR YELLOW; URINE GLUCOSE-RANDOM* NEGATIVE (Negative); URINE KETONES NEGATIVE (Negative); URINE PROTEIN (DIPSTICK) 1+ (Negative); URINE SPECIFIC GRAVITY 1.015 (1.005-1.035); URINE UROBILINOGEN 0.2 E.U./dl (0.2-1.0)
[2020-01-28 07:42] LABS: URINE CLARITY HAZY; URINE LEUKOCYTES-REFLEX 2+ (Negative); URINE NITRITE-REFLEX POSITIVE (Negative)
[2020-01-28 07:50] LABS: CASTS None Seen /LPF (None Seen); SQUAMOUS 4-10 Moderate /LPF (0-3)
[2020-01-28 07:51] LABS: BACTERIA-REFLEX >30 Many /HPF (None Seen); CRYSTALS None Seen /LPF (None Seen); URINE RBC 3-10 Few /HPF (0-2); URINE WBC-REFLEX >25 Many /HPF (0-5); WBC CLUMPS Packed (None Seen)
--- NOTE | 2020-01-28 11:55 | NUR ---
ASSUMED CARE AT 0700. PT IS ALERT. RESIDUAL AFFECTS FROM PREVIOUS CVA. EXPRESSIVE APHASIA NOTED. VSSA/2L O2. NSR ON TELE. TOLERATING DIET. FERRIS IN PLACE. NO BM. PIV IN PLACE. NO COMPLAINTS. PT/OT WORKING WITH HER. FALL PRECAUTIONS IN PLACE. CALL LIGHT IN REACH. WILL CONINUE TO MONITOR
[2020-01-28 15:10] VITALS: BP 119/68
--- NOTE | 2020-01-28 15:12 | NUR ---
Case opened to follow for dc planning. Pt admitted s/p fall at home and hypoxia. Improved today and on o2 at 2liters. Director Of Software Engineering spoke with the pt's dtr/dpashish Redman as the pt is aphasic from a previous stroke. The pt lives at home with her two dtrs Юлия and Mary. They provide 13/02 care and supervision. The pt is normally able to walk short distances with a hemiwalker d/t rt sided deficits. She is on one level at home with no steps. She has had [facility] in the recent past and would like to use them again for nursing and therapy. PT/OT are working with her. Possible dc to home 1-2 days. [facility]. Will check for home o2 referral pending her room air/exer sats. Pt's dtr denies any other dc planning needs/concerns at this time. Will follow.
[2020-01-28 15:53] VITALS: BP 138/82
[2020-01-28 19:25] VITALS: BP 115/75
--- NOTE | 2020-01-29 04:54 | NUR ---
Pt. rested quietly at intervals during the night when checked on during frequent rounds. 02 saturation in the upper 80's on 2 liters per a nasal canula. No c/o shortness of air and pt. pulled up higher in the bed. O2 saturation back up in the upper 90's. Bed alarm is on.
[2020-01-29 05:55] LABS: HEMATOCRIT 43.2 % (37.0-47.0); HEMOGLOBIN 14.2 gm/dL (12.0-15.0); MCH 32.7 pg (26.0-34.0); MCHC 32.8 g/dL (28.0-37.0); MCV 99.9 fL (80.0-100.0); RBC 4.33 mil/uL (4.20-5.00); RDW 14.5 % (10.5-14.5)
[2020-01-29 06:54] LABS: CREATININE 1.1 mg/dL (0.6-1.0); POTASSIUM 4.1 mmol/L (3.5-5.1)
[2020-01-29 07:33] VITALS: BP 135/81
[2020-01-29] MEDS ORDERED: KEFLEX500 M1 PO ×2 (12:50→14:38)
[2020-01-29] MEDS ORDERED: PROAIR HFA8.5 GM INH ×2 (12:51→14:38)
[2020-01-29 13:44] VITALS: BP 119/68
--- NOTE | 2020-01-29 15:02 | NUR ---
CARE TEAM INDICATED THAT PT IS MEDICALLY STABLE TO DC HOME THIS DAY. [facility] HAS ACCEPTED PT ORDERS HAVE BEEN FAXED TO THEM. PT QUALIFIED FOR HOME O2 2L AT REST 4L WITH ACTIVITY. PT AND FAMILY INIDCATED NO PREFERENCE FOR PROVIDERS ORDER SENT TO [facility] [place]. [facility] [place] TO DELIVER PORTABLE TANK FOR FAMILY TO TRANSPORT HOME. FAMILY INDICATED "HOSPITAL DR. RAMEY AND NURSE SAID THAT [facility] WOULD BE ARRANGED FOR DISCHARGE." CM INDICATED THAT IS NOT USUALLY PROVIDED BUT THAT IF THEY DIDN'T FEEL THAT THEY COULD SAFTELY TRANSPORT PT HOME THIS EVENING [facility]. [facility]ED FOR [id number]. BOTH DTRS AWARE AND AGREEABLE. THEY EXPRESSED UNDERSTANDING THAT THEY NEED TO CONTACT [facility] [place] UPON PT'S RETURN HOME TO ARRANGE DELIVERS OF HOME O2 SUPPLIES AND THAT [facility] WILL CONTACT THEM TO SET UP ASSESSMENT VISIT.
[2020-01-29 16:30] VITALS: BP 119/68
--- NOTE | 2020-01-29 20:05 | NUR ---
PATIENT ORIENTED WITH EXPRESSIVE APHASIA. DISCHARGED TO HOME WITH HOME HEALTH AND DAUGHTER IN STABLE CONDITION WITH DISCHARGE INSTRUCTION AND ORDERS AND ALL PERSONAL BELONGINGS. TRANSPORTED VIA WHEELCHAIR VAN AND O2 NC 2LPM.
== END 2020-01-29 17:07 | disposition home health service (06) | DRG 682 ==
LOC: ER 20:14 → 4W 22:32 → EROBS 22:32 → 2N 01-26 00:06 → 4W 01-27 01:03
PROVIDERS: Emergency Medicine; Nurse Practitioner Family; Physician Assistant; ADMIT Hospitalist; ATTEND Hospitalist
DX: N17.9 Acute kidney failure, unspecified (principal); J96.01 Acute respiratory failure with hypoxia; I50.33 Acute on chronic diastolic (congestive) heart failure; N39.0 Urinary tract infection, site not specified; I13.0 Hypertensive heart and chronic kidney disease with heart failure and stage 1 through stage 4 chronic kidney disease, or unspecified chronic kidney disease; R47.01 Aphasia; I69.351 Hemiplegia and hemiparesis following cerebral infarction affecting right dominant side; S00.83XA Contusion of other part of head, initial encounter; Z20.828 Contact with and (suspected) exposure to other viral communicable diseases; G40.909 Epilepsy, unspecified, not intractable, without status epilepticus; F41.9 Anxiety disorder, unspecified; F32.9 Major depressive disorder, single episode, unspecified; S20.219A Contusion of unspecified front wall of thorax, initial encounter; N18.9 Chronic kidney disease, unspecified; E87.6 Hypokalemia; S81.811A Laceration without foreign body, right lower leg, initial encounter; I67.1 Cerebral aneurysm, nonruptured; R53.81 Other malaise; M62.84 Sarcopenia; K59.00 Constipation, unspecified; G47.00 Insomnia, unspecified; R91.1 Solitary pulmonary nodule; Z90.49 Acquired absence of other specified parts of digestive tract; Z85.038 Personal history of other malignant neoplasm of large intestine; Z87.891 Personal history of nicotine dependence; W18.39XA Other fall on same level, initial encounter; Y93.89 Activity, other specified; Y92.009 Unspecified place in unspecified non-institutional (private) residence as the place of occurrence of the external cause; Z79.82 Long term (current) use of aspirin; Z79.899 Other long term (current) drug therapy; Z82.49 Family history of ischemic heart disease and other diseases of the circulatory system; Z87.81 Personal history of (healed) traumatic fracture; Y99.8 Other external cause status
CPT/HCPCS: 10045; 10081

== ENCOUNTER → 2020-02-13 | Outpatient (CLI) | payer OTHER ==
[~2020-02-13] MED LIST changes: +KEFLEX500 M1 PO; +NORVASC 2.5 MG2.5 M1 PO; +PROAIR HFA8.5 GM INH
== END ==
LOC: SJCVC 09:35
PROVIDERS: ATTEND Internal Medicine
DX: I11.0 Hypertensive heart disease with heart failure (principal); I50.30 Unspecified diastolic (congestive) heart failure; R94.31 Abnormal electrocardiogram [ECG] [EKG]; E78.5 Hyperlipidemia, unspecified; I69.320 Aphasia following cerebral infarction; Z78.9 Other specified health status; Z79.899 Other long term (current) drug therapy; Z79.82 Long term (current) use of aspirin; Z87.891 Personal history of nicotine dependence